=== PATIENT | male | born 1950 | race American Indian/Alaskan Native ===

== ENCOUNTER 2017-08-04 07:07 | Day surgery (SDC) | payer MEDICARE, OTHER ==
[~2017-08-04] VITALS: Ht 172.7 cm; Wt 90.7 kg
[~2017-08-04 07:07] MED LIST: CLINDAMYCIN HC300 MG PO; COUMADIN5 MG PO; HYDROCODON-ACE1 EA10 PO; IBUPROFEN800 MG PO; LIPITOR10 MG PO; LIPITOR20 MG PO; VICODIN 5-3001 EACH PO
[2017-08-04] MEDS ORDERED: PAIN RELIEF325 MG PO (07:22)
== END 2017-08-04 08:50 | disposition home or self-care (01) ==
LOC: OPS 07:07 → DS 07:07 → OPS 08:15 → DS 08:30 → OPS 08:50
PROC: 08RK3JZ Replacement of Left Lens with Synthetic Substitute, Percutaneous Approach (ICD-10-PCS; principal; 2017-08-04)
DX: H25.812 Combined forms of age-related cataract, left eye (principal); Z87.891 Personal history of nicotine dependence; Z98.890 Other specified postprocedural states; Z86.73 Personal history of transient ischemic attack (TIA), and cerebral infarction without residual deficits; Z96.651 Presence of right artificial knee joint; Z88.0 Allergy status to penicillin
CPT/HCPCS: 00140; J0360

== ENCOUNTER 2017-11-08 15:52 | Day surgery (SDC) | payer MEDICARE, OTHER ==
[~2017-11-08] VITALS: Ht 172.7 cm; Wt 99.8 kg
--- OUTSIDE RECORDS SUMMARY | ~2017-11-08 | XMS | Encounter Summary ---
Demographics + + + | Address | [address] | | | [place] [address] | + + + | Home Phone | | + + + | Preferred Language | Unknown | + + + | Marital Status | Single | + + + | Restorationist Affiliation | Unknown | + + + | Race | Unknown | + + + | Ethnic Group | Other Race | + + + Author + + + | Author | [facility] | + + + | Organization | [facility] | + + + | Address | Unknown | + + + | Phone | Unavailable | + + + Support +------+ +---------+ + | Name | Relationship | Address | Phone | +------+ +---------+ + ECON | Unknown | Unavailable | +------+ +---------+ + Care Team Providers + +------+-------+ | Care Technical Support Agent Name | Role | Phone | + +------+-------+ | Matt Arreguin MD | PCP | tel | + +------+-------+ Encounter Details +--------+ + + + + | Date | Type | Department | Care Team | Description | +--------+ + + + + | 09/24/ | Document-Sc | Health Information | Unknown . | | | 2017 | anned | Services [address] | | | | | | [facility] | | | | | | Road Mailcode: | | | | | | [address] | | | | | | [facility] | | | | | | [place], [place] | | | | | | [address] | | | | | | [phone] | | | +--------+ + + + + Social History + + + +--------+ + | Tobacco Use | Types | Packs/Day | Years | Date | | | | | Used | | + + + +--------+ + | Former Smoker | Cigarettes | 2 | 24 | Quit: 11/08/1979 | + + + +--------+ + + + +---------+ + | Alcohol Use | Drinks/We | oz/Week | Comments | | | ek | | | + + +---------+ + | No | | | | + + +---------+ + + + + | Sex Assigned at | Date Recorded | | | | + + + | Not on file | | + + + as of this encounter Plan of Treatment Not on fileas of this encounter Visit Diagnoses Not on filein this encounter"
[~2017-11-08 15:52] MED LIST changes: +PAIN RELIEF325 MG PO
--- NOTE | 2017-11-08 19:33 | NUR ---
11/08/171932 Laura Garibay 1926: PT ARRIVES TO PACU. PT IS AWAKE AND RESPONSIVE. HE FREQUENTLY COUGHS, DENIES PAIN. HE FOLLOWS DIRECTIONS WELL.
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
--- NOTE | 2017-11-08 22:17 | NUR ---
PT DISCHARGED WITH FRIEND CHRIS YOST @ 7029 VIA THIS RN, WHEELCHAIR TO FRONT. ASSISTED PT INTO FRONT SEAT OF AUTO. PRIOR TO DISCHARGE, PT DRANK WATER, POP, ATE JELLO. VOIDED X 2. LEFT LEG DRESSING WAS C/D/I, WRAPPED WITH ACEWRAP. INSTRUCTIONS GIVEN AND READ TO PT PRIOR TO DISCHARGE. HOMEPACK NORCO GIVEN TO PT WELL. PERSCRIPTION PER DR. CARTER GIVEN TO PT, HOWEVER IS NOTED THAT WROTE THE CLINDAMYCIN FOR "IV" VS "PO", WILL CALL IN AM AND LET HIM KNOW. PT AWARE. PLANS TO GET MEDICATIONS FILLED AT [facility]. PT AWARE THAT HE NEEDS TO MAKE AN APPOINTMENT IN 7-10 DAYS, DR. CARTER CARD GIVEN TO PT WELL.
--- NOTE | 2017-11-09 06:27 | NUR ---
NOTIFIED DR. CARTER OF THE CLINDAMYCIN PERSCRIPTION ORDER BEING WROTE "IV" VS PO. HE WILL TAKE CARE OF IT TODAY.
--- NOTE | 2017-11-09 06:38 | EKG ---
[facility] [address] [facility] [place], [place] [address] Signed Normal sinus rhythm Rightward axis Borderline ECG No previous ECGs available Confirmed by JOSETTE HICKEY MD ([id number]) on 11/09/2017 6:38:44 AM Electronically Signed By: JOSETTE HICKEY MD 11/09/17 0638 PATIENT NAME: ELIESER MOSES SR Electrocardiogram DATE OF : 46 PHYSICIAN: JOSETTE HICKEY MD REPORT #: [id number] REPORT IS CONFIDENTIAL AND NOT TO BE RELEASED WITHOUT AUTHORIZATION
--- NOTE | 2017-11-17 18:42 | OR ---
[facility] [address] [place], [place] [address] Signed DATE OF OPERATION: 11/08/2017 SURGEON: Britton Carter MD PREOPERATIVE DIAGNOSIS: Dog bite, left lower extremity. POSTOPERATIVE DIAGNOSIS: Dog bite, left lower extremity. PROCEDURE: Wound irrigation, sharp debridement, and primary closure, left lower extremity wounds. ESTIMATED BLOOD LOSS: None. INDICATIONS: Elieser is a 67-year-old gentleman who owns 2 dogs, one is in an older Rottweiler. The other is a younger dog, a mixture of a Portuguese Courtney with a [place]. Unfortunately, the Rottweiler went after the younger dog earlier today. When Elieser stepped in between them, the Rottweiler bit him in his left leg just below his left knee. It opened up the skin on the lateral side of the tibia probably 8 cm, maybe slightly more and tore up some of the muscle. It also tore some of the skin on the medial side of his calf as well. Elieser and his came in the emergency room for evaluation. He is up to date on his tetanus shot. He did receive Levaquin and clindamycin because he is allergic to penicillin. I have been asked by the ER physician Dr. Keyla Quinones to come and see Elieser urgently in the ER for evaluation and wound management. I met with Elieser and his in the emergency room. I explained to Elieser it is best that we taken down to the operating room, we will put him asleep and will thoroughly and aggressively clean his wounds with chlorhexidine scrub brushes and once that is completed, we would be able to prep and drape his leg, evaluate the wound, sharply debride any loose or devitalized tissue and then loosely reapproximate the wound. He is at high risk for infection, particularly pasteurella. He wanted to go home afterwards, even though he is getting late and his was in agreement with that. I did review the postop instructions with Elieser and his prior to going to the OR. They had expressed understanding and wished to proceed. PROCEDURE NOTE: Elieser was taken into our operating room and placed in the supine position under general endotracheal tube anesthesia. He was already given Levaquin and clindamycin Electronically Signed By: BRITTON CARTER MD 11/17/17 1842 PATIENT NAME: ELIESER MOSES SR OPERATIVE REPORT DATE OF : 46 PHYSICIAN: BRITTON CARTER MD REPORT #: [id number] REPORT IS CONFIDENTIAL AND NOT TO BE RELEASED WITHOUT AUTHORIZATION [address] [address] Signed preoperatively. He has been on Coumadin because of the history of DVT and a stroke. Consequently, we did not give him any subcutaneous heparin. Our preoperative labs were still pending. After this, we used our chlorhexidine scrub brushes and saline and we cope to aggressively scrub and irrigate out his 2 wounds. He had a couple of smaller puncture wounds on the medial side of his calf as well. After this, his entire foot and leg to above the knee was prepped and draped in the usual sterile fashion. We then used some warm antibiotic saline solution to irrigate the wounds and we inspected them carefully and there were a few loose hairs that we had to remove. There was a little bit of blood clot, we cleaned that out nicely. He had some disruption to the muscle lateral to the tibia and we used a number 2-0 PDS suture in a horseshoe fashion to bring that muscle together loosely. We then brought the skin flap over that and held the skin flap together loosely with interrupted 2-0 nylon vertical mattress sutures. We then turned our attention to the much smaller 2 cm wound on the medial side of his calf, again we loosely approximated the skin edges with 2 interrupted sutures of 2-0 nylon. We used the vertical mattress technique. The tiny puncture wounds were left open. Those tiny puncture wounds connect with the larger wound on the medial side of his calf. All that had been irrigated and cleaned out aggressively. After this, we wrapped his leg with 4-inch Kerlix gauze and a 4-inch Albaro wrap. Elieser was then awakened from his anesthesia, extubated in the OR, taken to recovery room in stable condition. Britton Carter MD ALB/MODL /[id number] cc: MD Enedelia Gabriel MD Electronically Signed By: BRITTON CARTER MD 11/17/17 1842 PATIENT NAME: ELIESER MOSES SR OPERATIVE REPORT DATE OF : 46 PHYSICIAN: BRITTON CARTER MD REPORT #: [id number] REPORT IS CONFIDENTIAL AND NOT TO BE RELEASED WITHOUT AUTHORIZATION [place] [address] Signed Britton Carter MD Electronically Signed By: BRITTON CARTER MD 11/17/17 1842 PATIENT NAME: ELIESER MOSES SR OPERATIVE REPORT DATE OF : 46 PHYSICIAN: BRITTON CARTER MD REPORT #: [id number] REPORT IS CONFIDENTIAL AND NOT TO BE RELEASED WITHOUT AUTHORIZATION
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
== END 2017-11-08 21:55 | disposition home or self-care (01) ==
LOC: ED 15:52 → MS 18:34 → DS 18:34
PROVIDERS: Colon & Rectal Surgery
PROC: 0JBP0ZZ Excision of Left Lower Leg Subcutaneous Tissue and Fascia, Open Approach (ICD-10-PCS; principal; 2017-11-08 19:00)
DX: S81.852A Open bite, left lower leg, initial encounter (principal); I10 Essential (primary) hypertension; E78.5 Hyperlipidemia, unspecified; Z86.73 Personal history of transient ischemic attack (TIA), and cerebral infarction without residual deficits; Z86.718 Personal history of other venous thrombosis and embolism; Z96.611 Presence of right artificial shoulder joint; Z96.612 Presence of left artificial shoulder joint; Z96.641 Presence of right artificial hip joint; Z87.891 Personal history of nicotine dependence; Z79.899 Other long term (current) drug therapy; W54.0XXA Bitten by dog, initial encounter; Y93.9 Activity, unspecified
CPT/HCPCS: 00400; 73590; 80053; 85025; 85610; 93005; 93010; 96365; 96366; 96368; 99285; J0330; J1956; J2405; J2704; J2765; J3010; J3490; J7120

== ENCOUNTER 2020-07-29 14:19 | Emergency (ER) | payer MEDICARE, OTHER ==
[~2020-07-29] VITALS: Ht 172.7 cm; Wt 93.0 kg
--- OUTSIDE RECORDS SUMMARY | ~2020-07-29 | XMS | Encounter Summary ---
Demographics + + + | Address | [address] | | | [place] [address] | + + + | Home Phone | | + + + | Preferred Language | Unknown | + + + | Marital Status | Single | + + + | Amish Affiliation | Unknown | + + + | Race | Unknown | + + + | Ethnic Group | Other Race | + + + Author + + + | Author | [facility] | + + + | Organization | [facility] | + + + | Address | Unknown | + + + | Phone | Unavailable | + + + Support + + +---------+ + | Name | Relationship | Address | Phone | + + +---------+ + | None None | ECON | Unknown | Unavailable | + + +---------+ + Care Team Providers + +------+ + | Care Drug Abuse Program Coordinator Name | Role | Phone | + +------+ + | Matt Arreguin MD | PCP | | + +------+ + Encounter Details +--------+---------+ + + + | Date | Type | Department | Care Team | Description | +--------+---------+ + + + | 04/27/ | Office | [facility] | Omer De Luna, | Hemangioma of | | 2011 | Visit | [facility] at | [address] | unspecified site | | | | [place] [address] [address] | [address] | (Primary Dx) | | | | [address] | [place], [place] | | | | | Eye [place] | [address] | | | | | [place], [place] | [phone] | | | | | [address] | | | +--------+---------+ + + + Social History + + + +--------+ + | Tobacco Use | Types | Packs/Day | Years | Date | | | | | Used | | + + + +--------+ + | Former Smoker | Cigarettes | 2 | 24 | Quit: 11/08/1979 | + + + +--------+ + + + +---------+ + | Alcohol Use | Drinks/Week | oz/Week | Comments | + + +---------+ + | No | | | | + + +---------+ + + + + | Sex Assigned at | Date Recorded | | | | + + + | Not on file | | + + + documented as of this encounter Patient Instructions Patient Instructions Isabel Beyer - 04/27/2012 11:05 AM PDT Mr. Dequan Reyes was seen for the followin. Hemangioma of unspecified site Verbal instructions for diagnosis and management were given. Return in about 6 months (ar ound 10/27/2012). documented in this encounter Progress Notes Omer De Luna MD - 04/27/2012 10:30 AM PDTFormatting of this note might be different fro m the original. History of Present Illness: Dequan Reyes is a 62 y.o. male who returns for follow up of ch oroidal hemangioma s/p photodynamic therapy OD 12/02/10, 09/09/10 & 06/19/10. Vision is poor but stable since last visit. Medications: no eye meds Review of Systems: Right Left Loss of Vision no no Eye Pain no no Mental Status: Oriented times three Examination: EXAMINATION: VAs RE: HM?/LP VAcc LE: 20/20-2 IOP: RE 11; LE 14 by [place] at 10:32 AM RE LE Pupils 1 mm, nonreactive 2 mm minimal reactive Motility RXT, full ROM full ROM CVF full full Dilating drops placed: tropicamide 1% and neosynephrine 2.5% at 10:35 AM and again at 10:50 AM External: OD normal, OS normal Slit lamp exam: RE LE Lids/Lacrimal/Tear: normal Conjunctiva: normal Cornea: epithelium intact, normal stromal thickness, endothelium normal AC: deep and clear Iris: normal Lens: 2-3+ NS Lids/Lacrimal/Tear: normal Conjunctiva: normal Cornea: epithelium intact, normal stromal thickness, endothelium normal AC: deep and clear Iris: normal Lens: 2-3+ NS Fundus Exam: RE LE Vitreous: normal Disc: CDR .2 Macula: relatively flat non-pigmented lesion; no subretinal fluid in the fovea Vessels: normal Periphery: some subretinal fluid temporally in a tight fold; otherwise fluid has reabsorbed Vitreous: normal Disc: CDR .2 Macula: normal Vessels: normal Periphery: normal Assessment and Plan: 1. 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 Sensory exotropia, right eye 3. Cataracts, both eyes RTC 6 months to continue to monitor, sooner prn I have reviewed and edited history, identification technician, resident and/or fellow portion of documenta tion, and performed all elements of the above examination documentation. Omer De Luna MD Professor and Lluvia Chair, Department of Ophthalmology Director, [facility] [phone] documented in this en counter Plan of Treatment Not on filedocumented as of this encounter Visit Diagnoses + + | Diagnosis | + + | Hemangioma of unspecified site - Primary | + + documented in this encounter"
--- OUTSIDE RECORDS SUMMARY | ~2020-07-29 | XMS | Encounter Summary ---
Demographics + + + | Address | [address] | | | [place] [address] | + + + | Home Phone | | + + + | Preferred Language | Unknown | + + + | Marital Status | Single | + + + | Nondenominational Affiliation | Unknown | + + + | Race | Unknown | + + + | Ethnic Group | Other Race | + + + Author + + + | Author | [facility] | + + + | Organization | [facility] | + + + | Address | Unknown | + + + | Phone | Unavailable | + + + Support + + +---------+ + | Name | Relationship | Address | Phone | + + +---------+ + | None None | ECON | Unknown | Unavailable | + + +---------+ + Care Team Providers + +------+ + | Care Coke Drawer Hand Name | Role | Phone | + +------+ + | Matt Arreguin MD | PCP | | + +------+ + Reason for Visit + + + | Reason | Comments | + + + | Follow-up visit | | + + + Encounter Details +--------+---------+ + + + | Date | Type | Department | Care Team | Description | +--------+---------+ + + + | 12/05/ | Office | [facility] | Nakia Gomez, | Benign neoplasm of | | 2012 | Visit | [facility] at | ,PhD [address] | choroid (Primary Dx) | | | | [facility] [address] | [address]donez | | | | | [address] | [place], [place] | | | | | Eye [facility] | [address] | | | | | floor [place], [place] | [phone] | | | | | [address] | [...] + + documented as of this encounter Progress Shayna Varsha Tracey - 12/05/2012 1:44 PM PSTThis note was opened in error. No show for luis GOMEZ MD,PhD documented in th is encounter Plan of Treatment Not on filedocumented as of this encounter Visit Diagnoses + + | Diagnosis | + + | Benign neoplasm of choroid - Primary | + + documented in this encounter"
--- OUTSIDE RECORDS SUMMARY | ~2020-07-29 | XMS | Encounter Summary ---
Demographics + + + | Address | [address] | | | [place] [address] | + + + | Home Phone | | + + + | Preferred Language | Unknown | + + + | Marital Status | Single | + + + | Anabaptism Affiliation | Unknown | + + + | Race | Unknown | + + + | Ethnic Group | Other Race | + + + Author + + + | Author | [facility] | + + + | Organization | [facility] | + + + | Address | Unknown | + + + | Phone | Unavailable | + + + Support + + +---------+ + | Name | Relationship | Address | Phone | + + +---------+ + | None None | ECON | Unknown | Unavailable | + + +---------+ + Care Team Providers + +------+ + | Care Block And Case Maker Name | Role | Phone | + +------+ + | Matt Arreguin MD | PCP | | + +------+ + Reason for Visit + +--------+ + | Reason | Onset | Comments | | | Date | | + +--------+ + | New patient | | | | consultation | | | + +--------+ + | Follow-up visit | 05/21/ | | | | 2009 | | + +--------+ + Office Visit - E/M Services (Routine) +--------+--------+ + + + + | Status | Reason | Specialty | Diagnoses / | Referred By | Referred To | | | | | Procedures | Contact | Contact | +--------+--------+ + + + + | Closed | | Ophthalmology | Diagnoses | Sitz, | Calixto, | | | | | Contact: | Matt | Omer Lopes MD | | | | | Em | MD Satya | [address] | | | | | [place] | [place] | [place] | | | | | [phone] | [address] | [address] | | | | | Fax: | MEDICINE | [place], [place] | | | | | [phone] | [address] | [address] | | | | | | [place] | Phone: | | | | | | [address] | [phone] | | | | | | [place], | Fax: | | | | | | [place] [address] | [phone] | | | | | | Phone: | | | | | | | [phone] | | | | | | | Fax: | | | | | | | [phone] | | +--------+--------+ + + + + Encounter Details +--------+---------+ + + + | Date | Type | Department | Care Team | Description | +--------+---------+ + + + | 05/21/ | Office | [facility] | Omer De Luna, | Benign neoplasm of | | 2009 | Visit | [facility] at | MD [address] | choroid (Primary Dx) | | | | [facility] [address] | [place] [address] | | | | | [facility] | [place], [place] | | | | | and Healing, | [address] | | | | | | [phone] | | | | | Floor [place], [place] | | | | | | [address] | | | | | | [phone] | | | +--------+---------+ + + + [...] + documented as of this encounter Progress Notes Omer De Luna MD - 05/21/2010 10:19 AM PDTFormatting of this note might be different fro m the original. History of Present Illness: Dequan Reyes is a 60 y.o. male referred by Dr. Knox for eval uation of a dome shaped choroidal mass OD. Patient evaluated by Dr. Knox and Dr. Torres inc luding echography on 04/15/10. Mr. Reyes has previously had laser treatment to the choroida l lesion with a clinical diagnosis of hemangioma. Patient reports his vision in his OD has b een poor for years, OS is good. PCP - Dr. Arreguin recently completed medical workup with labs, EKG (received reports) CT [address], abdomen and pelvis (not received). Medications: No eye medications. Systemic medications reviewed in EPIC. Review of Systems: RE LE RE LE Loss of vision Y N Night Blindness N N Loss of peripheral vision N N Seeing a curtain or veil N N Eye Pain N N Headache N N Light flashes Y N Double vision N N Floaters N N Migraines N N Visual blackouts N N Distorted vision Y N Social History: Tobacco Use: No Drives: Yes Occupation: Disabled Mental Status: Oriented times three Examination: VAsc RE: VAcc RE: CF 6" VAph sc RE: VAph cc RE: NI VAsc LE: VAcc LE: 20/20-2 VAph sc LE: VAph cc LE: IOP: RE 20; LE 17 by Tonopen at 10:24 AM RE LE Pupils 2.5 mm equal round and reactive to light; no APD 2.5 mm equal round and reactive to light; no APD Motility ortho, full ROM ortho, full ROM CVF limited all sheridan full Dilating drops placed: tropicamide 1% and neosynephrine 2.5% OU at 10:25 AM Varsha Salinas Cot, performed, reviewed or revised the above history, medications, allergie s, as well as performed elements noted in the Base Ophthalmology Exam, such as visual acuity , pupils, EOMs, CVF and IOP. External OD normal, OS normal Slit lamp exam: RE LE Lids/Lacrimal/Tear: normal Conjunctiva: normal Cornea: epithelium intact, normal stromal thickness, endothelium normal AC: deep and clear Iris: normal Lens: 2+ NS Lids/Lacrimal/Tear: normal Conjunctiva: normal Cornea: epithelium intact, normal stromal thickness, endothelium normal AC: deep and clear Iris: normal Lens: 2+ NS Fundus Exam: RE LE Vitreous: normal Disc: CDR .4 Macula: reddish, elevated lesion Vessels: normal Periphery: bullous retinal detachment inferiorly; there are clumps of pigmented cells on th e surface of the retina; no retinal breaks can be identified Vitreous: normal Disc: CDR .4 Macula: normal Vessels: normal Periphery: normal Diagnostic Studies: Color fundus photography: The color photographs are of diminished quality secondary to the lens changes and but the reddish color of the mass is clear in the photographs. Echography: There is a dome shaped mass in the choroid with a prominent amount of subretina l fluid present inferiorly. A scan echography demonstrates high internal reflectivity. Assessment and Plan: Choroidal mass: The lesion in Mr. Reyes right eye has the clinical features of a choroidal hemangioma, reddish coloration, high internal reflectivity. The amount of subretinal fluid is in excess of what one would anticipate with a focal choroidal hemangioma, and the extent of the fluid makes me wonder if there is not a small retinal hole that is permitting a great er amount of fluid than would otherwise be present. The pigmented cells on the surface of th e retina also suggest the possibility of a retinal break, although sometimes one can see skylar ls from prior laser therapy. I have recommended to Mr. Reyes that we do photodynamic therap y to the choroidal lesion as choroidal hemangiomas are generally responsive to that form of treatment. I would take a good response as an indication that the lesion is in fact a heman gioma. If the lesion responds but the subretinal fluid persists, I think that it would be a ppropriate to do a vitrectomy with internal drainage of the fluid. However, I think that ma y be postponed until after the photodynamic therapy. RTC when scheduled for PDT. Omer De Luna MD Professor and Chair, Department of Ophthalmology [facility] [phone] documented in this en counter Miscellaneous Notes Scan - Other, Faculty - 05/21/2010 12:20 PM PDT can - Other, Faculty - 05/21/2010 12:20 PM PDT can - Other, Faculty - 04/21/2010 12:00 AM PDTAssociated Order(s): LAB REPORTS documented in this encou nter Plan of Treatment + + +--------+ + + | Name | Type | Priori | Associated Diagnoses | Order Schedule | | | | ty | | | + + +--------+ + + | COLOR PHOTOGRAPHY | Procedures | Routin | Benign neoplasm of | Expected: | | | | e | choroid | 05/21/2010, Expires: | | | | | | 07/20/2010 | + + +--------+ + + documented as of this encounter Procedures + +--------+ + + + | Procedure Name | Priori | Date/Time | Associated Diagnosis | Comments | | | ty | | | | + +--------+ + + + | SC FUNDAL | Routin | 05/21/2010 | Benign neoplasm of | | | PHOTOGRAPHY | e | 11:10 AM | choroid | | | | | PDT | | | + +--------+ + + + | LAB REPORTS | | 04/21/2010 | | Results for this | | | | 12:00 AM | | procedure are in the | | | | PDT | | results section. | + +--------+ + + + documented in this encounter Results LAB REPORTS (04/21/2010 12:00 AM PDT) + + + | Narrative | Performed At | + + + | | | + + + + + | Procedure Note | + + | Nicole, Faculty - 04/21/2010 12:00 AM PDT | | | + + documented in this encounter Visit Diagnoses + + | Diagnosis | + + | Benign neoplasm of choroid - Primary | + + documented in this encounter
--- OUTSIDE RECORDS SUMMARY | ~2020-07-29 | XMS | Encounter Summary ---
Demographics + + + | Address | [address] | | | [place] [address] | + + + | Home Phone | | + + + | Preferred Language | Unknown | + + + | Marital Status | Single | + + + | Mandaeism Affiliation | Unknown | + + + | Race | Unknown | + + + | Ethnic Group | Other Race | + + + Author + + + | Author | [facility] | + + + | Organization | [facility] | + + + | Address | Unknown | + + + | Phone | Unavailable | + + + Support + + +---------+ + | Name | Relationship | Address | Phone | + + +---------+ + | None None | ECON | Unknown | Unavailable | + + +---------+ + Care Team Providers + +------+ + | Care Textiles Sales Representative Name | Role | Phone | + +------+ + | Matt Arreguin MD | PCP | | + +------+ + Reason for Visit + +--------+ + | Reason | Onset | Comments | | | Date | | + +--------+ + | Follow-up visit | 06/03/ | | | | 2010 | | + +--------+ + Encounter Details +--------+---------+ + + + | Date | Type | Department | Care Team | Description | +--------+---------+ + + + | 06/03/ | Office | [facility] | Omer De Luna, | Benign neoplasm of | | 2010 | Visit | [facility] at | [address] | choroid (Primary Dx) | | | | [facility] [address] | [place] [address] | | | | | [facility] | [place], [place] | | | | | and [place], | [address] | | | | | [facility] | [phone] | | | | | Floor [place], [place] | | | | | | [address] | | | | | | [phone] | | | +--------+---------+ + + + [...] of this encounter Patient Instructions Patient Instructions Omer De Luna MD - 06/03/2011 12:10 PM PDTFormatting of this note m ight be different from the original. Mr. 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 Return in about 4 months (ar ound 10/04/2011). documented in this encounter Progress Notes Omer De Luna MD - 06/03/2011 11:42 AM PDTFormatting of this note might be different fro m the original. History of Present Illness: Dequan Reyes is a 61 y.o. male who returns for follow up of ch oroidal hemangioma. S/P photodynamic therapy OD 12/02/10, 09/09/10 & 06/19/10. Vision is sta ble since last visit. Medications: no eye meds. Systemic meds reviewed in EPIC. Took one vicodin this morning for headache. Review of Systems: Right Left Loss of Vision Yes, stable no Eye Pain no no Mental Status: Oriented times three Examination: VAsc RE: VAph RE: VAcc RE: HM VAsc LE: VAph LE: VAcc LE: 20/20-2 IOP: RE 11; LE 18 by Tonopen at 11:46 AM RE LE Pupils 1.5mm, nonreactive 1.5mm, nonreactive Motility ortho, full ROM ortho, full ROM CVF full full Dilating drops placed: tropicamide 1% and neosynephrine 2.5% at 11:46 AM. External: OD normal, OS normal Slit lamp exam: RE LE Lids/Lacrimal/Tear: normal Conjunctiva: normal Cornea: epithelium intact, normal stromal thickness, endothelium normal AC: deep and clear Iris: normal Lens: 2+ NS Lids/Lacrimal/Tear: normal Conjunctiva: normal Cornea: epithelium intact, normal stromal thickness, endothelium normal AC: deep and clear Iris: normal Lens: 2+ NS Fundus Exam: RE LE Vitreous: normal Disc: CDR .2 Macula:reddish-yellow, elevated lesion with no drusen, no lipofuscin but now has surface ex udates or fibrosis Vessels: sclerotic Periphery: inferior subretinal fluid; diminished compared to prior examinations Vitreous: normal Disc: CDR .2 Macula: normal Vessels: normal Periphery: normal Diagnostic Studies: Color Fundus Photography: There is a lesion in the central macula with overlying fibrosis. The superotemporal and inferotemporal arteries appear sclerotic. There is no significant int erval change when compared to prior photographs. Echography: The B-scan shows a dome-shaped mass with significant subretinal fluid. There is perhaps a slight increase in thickness to about 2.5 mm. Measurements are difficult because of the ill-defined sclera. However, in a side by side comparison to last exam shows the lesi on to be "baird" today. The retina remains bullously detached across the lesion. Assessment and Plan: 1. 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 I do not feel that additional treatment woul d be beneficial at this time. 2. Subretinal fluid: If the subretinal fluid does not show continued resolution, will consi chele draining the fluid with vitrectomy. However, Mr. Reyes is reluctant to consider further treatment at this time. I have reviewed and edited history, field contact technician, resident and/or fellow portion of documenta tion, and performed all elements of the above examination documentation. Omer De Luna MD Professor and Lluvia Chair, Department of Ophthalmology Director, [facility] [phone] documented in this en counter Plan of Treatment + + +--------+ + + | Name | Type | Priori | Associated Diagnoses | Order Schedule | | | | ty | | | + + +--------+ + + | COLOR PHOTOGRAPHY | Procedures | Routin | Benign neoplasm of | Expected: | | | | e | choroid | 06/03/2011, Expires: | | | | | | 08/02/2011 | + + +--------+ + + | ULTRASOUND, B SCAN | Procedures | Routin | Benign neoplasm of | Expected: | | | | e | choroid | 06/03/2011, Expires: | | | | | | 08/02/2011 | + + +--------+ + + documented as of this encounter Procedures + +--------+ + + + | Procedure Name | Priori | Date/Time | Associated Diagnosis | Comments | | | ty | | | | + +--------+ + + + | DC FUNDAL | Routin | 06/03/2011 | Benign neoplasm of | | | PHOTOGRAPHY | e | 12:09 PM | choroid | | | | | PDT | | | + +--------+ + + + documented in this encounter Visit Diagnoses + + | Diagnosis | + + | Benign neoplasm of choroid - Primary | + + documented in this encounter
--- OUTSIDE RECORDS SUMMARY | ~2020-07-29 | XMS | Encounter Summary ---
Demographics + + + | Address | [address] | | | [place] [address] | + + + | Home Phone | | + + + | Preferred Language | Unknown | + + + | Marital Status | Single | + + + | Mandaen Affiliation | Unknown | + + + | Race | Unknown | + + + | Ethnic Group | Other Race | + + + Author + + + | Author | [facility] | + + + | Organization | [facility] | + + + | Address | Unknown | + + + | Phone | Unavailable | + + + Support + + +---------+ + | Name | Relationship | Address | Phone | + + +---------+ + | None None | ECON | Unknown | Unavailable | + + +---------+ + Care Team Providers + +------+ + | Care Electronic Installer Name | Role | Phone | + +------+ + | Matt Arreguin MD | PCP | | + +------+ + Reason for Visit + +--------+ + | Reason | Onset | Comments | | | Date | | + +--------+ + | Ultrasound procedure | 12/03/ | | | | 2010 | | + +--------+ + Encounter Details +--------+---------+ + + + | Date | Type | Department | Care Team | Description | +--------+---------+ + + + | 12/02/ | Office | [facility] | Nicolas Rose | Benign neoplasm of | | 2010 | Visit | [facility] at | Avi Harris MD [address] | choroid (Primary | | | | [facility] [address] | Dx); Retinal | | | | [address] | [place], [place] | detachment with | | | | [facility], [facility] | [address] | retinal defect, | | | | floor [facility] [place] | [phone] | unspecified | | | | [address] | | [...] documented as of this encounter Progress Notes Adan Spencer - 12/03/2010 2:50 PM Mauricio Reyes was seen in the [facility] otography/Ultrasound Department today, 12/02/2010, for ultrasound, OD. This is a repeat exam showing no appreciable change in echographic appearance. Report finalized. NICOLAS ROSE MD Chin Dickson RN - 2:03 PM PST Photodynamic Therapy Procedure Report [id number] Indication: Choroidal hemangioma 224.6 right eye identified as the involved eye. Visual Acuity : 20/CF 2-3' Right eye IOP 16mmHg Race Engine Builder: ISAIAH Younger Allergies Allergen Reactions Penicillins Any Liver Disease? no There is no height or weight on file to calculate BSA. Height:67" Weight:227 Pulse : 64 BP: 140/80 Anesthesia: Topical proparacaine Lens: Mainster PDT Infusion: Visudyne: 6.3 ml = 126 units given, 24 units wasted Lot # [id number] Exp. 09/20 D 5W: 23.7 mlIV site: 24G IV started in left antecubital Visudyne infused over 10 minutesInfus ion Complications: none Infusionist: Chin Birch RN 15 minutes after the start of infusion, diode laser light at 689nm delivered 50J/cm2 at an intensity of 600mW/cs3saar 83 seconds using a 7.5 micron spot. Laser Complications: none Attending: BOZENA MCDONALD MD Discharge Instructions: Call or return for worsening vision. For the next 5 days remain ind oors if possible, Strictly avoid exposure to direct sun and halogen light. Wear hat, gloves, long sleeves, sunglasses outdoors. Follow-up in 8 weeks . Alejandro mented in this encounter Plan of Treatment + +---------+--------+ + + | Name | Type | Priori | Associated Diagnoses | Order Schedule | | | | ty | | | + +---------+--------+ + + | [facility] B-SCAN | Imaging | Routin | Retinal detachment | Ordered: 12/03/2010 | | | | e | with retinal | | | | | | defect, unspecified | | | | | | Benign neoplasm of | | | | | | choroid | | + +---------+--------+ + + documented as of this encounter Visit Diagnoses + + | Diagnosis | + + | Benign neoplasm of choroid - Primary | + + | Retinal detachment with retinal defect, unspecified | + + documented in this encounter
--- OUTSIDE RECORDS SUMMARY | ~2020-07-29 | XMS | Encounter Summary ---
Demographics + + + | Address | [address] | | | [place] [address] | + + + | Home Phone | | + + + | Preferred Language | Unknown | + + + | Marital Status | | + + + | Bahai Affiliation | Unknown | + + + | Race | White | + + + | Ethnic Group | Unknown | + + + Author + + + | Author | [facility] | | | and [place] | + + + | Organization | [facility] | | | and [place] | + + + | Address | Unknown | + + + | Phone | Unavailable | + + + Care Team Providers + +------+ + | Care Painter Drum Name | Role | Phone | + +------+ + PCP | Unavailable | + +------+ + Encounter Details +--------+ + + + + | Date | Type | Department | Care Team | Description | +--------+ + + + + | 01/04/ | Hospital | [facility] | Oziel Pichardo | | | 2007 | Encounter | MED CTR MP INTRA OP | MD [address] [facility] | | | | | [address] | [place] | | | | | [place] | [address] | | | | | [address] | | | | | | [phone] | | | +--------+ + + + + Social History + +-------+ +--------+------+ | Tobacco Use | Types | Packs/Day | Years | Date | | | | | Used | | + +-------+ +--------+------+ | Never Assessed | | | | | + +-------+ +--------+------+ + + + | Sex Assigned at | Date Recorded | | | | + + + | Not on file | | + + + documented as of this encounter Plan of Treatment +--------+---------+ + + + | Date | Type | Specialty | Care Team | Description | +--------+---------+ + + + | 08/05/ | Office | Orthopedic Surgery | Omer Harrington, | | | 2019 | Visit | | [address] | | | | | | [place] [address] | | | | | | [phone] | | | | | | | | +--------+---------+ + + + documented as of this encounter Visit Diagnoses Not on filedocumented in this encounter"
--- OUTSIDE RECORDS SUMMARY | ~2020-07-29 | XMS | Encounter Summary ---
Demographics + + + | Address | [address] | | | [place] [address] | + + + | Home Phone | | + + + | Preferred Language | Unknown | + + + | Marital Status | Single | + + + | Taoism Affiliation | Unknown | + + + | Race | Unknown | + + + | Ethnic Group | Other Race | + + + Author + + + | Author | [facility] | + + + | Organization | [facility] | + + + | Address | Unknown | + + + | Phone | Unavailable | + + + Support + + +---------+ + | Name | Relationship | Address | Phone | + + +---------+ + | None None | ECON | Unknown | Unavailable | + + +---------+ + Care Team Providers + +------+ + | Care Hog Pusher Name | Role | Phone | + +------+ + | Unknown | PCP | Unavailable | + +------+ + Reason for Visit + +--------+ + | Reason | Onset | Comments | | | Date | | + +--------+ + | Ultrasound procedure | 04/15/ | | | | 2009 | | + +--------+ + Encounter Details +--------+---------+ + + + | Date | Type | Department | Care Team | Description | +--------+---------+ + + + | 04/15/ | Office | [facility] | Nicolas Rose | Neoplasm of | | 2009 | Visit | [facility] at | Avi Harris MD [address] | uncertain behavior | | | | [place] [address] [address] | [address] | of other specified | | | | [address] | [place], [place] | sites (Primary Dx); | | | | [facility], [address]th | [address] | Retinal detachment | | | | floor [place], [place] | [phone] | with retinal defect, | | | | [address] | | unspecified; Benign | | | | | | neoplasm of choroid | +--------+---------+ + + + Social History [...] this encounter Progress Notes Adan Spencer - 04/15/2010 6:02 PM Jeanine Reyes was seen in the [facility] otography/Ultrasound Department today, 04/15/2010, for ultrasound, OD. The B-scan shows the choroidal lesion along the 9:00 meridian in the macula. The retina is totally detached over the lesion and beyond. Tumor thickness is about 3.0 mm and shows moderate but irregular internal reflectivity ambreen acteristics. Standardized, diagnostic A-scan confirms the moderate internal reflectivity characteristics with irregular structure. There is a small finding outside the sclera beneath the lesion that is not unlike extrascle ral tumor extension. See [facility] Ultrasound Flowsheet for chronological tumor information. Report finalized. NICOLAS ROSE MD documented in this encounter Miscellaneous Notes Scan - Moraima Rivera - 04/15/2010 4:32 PM PDT documented in this encou nter Plan of Treatment + +---------+--------+ + + | Name | Type | Priori | Associated Diagnoses | Order Schedule | | | | ty | | | + +---------+--------+ + + | [facility] B-SCAN | Imaging | Routin | Retinal detachment | Ordered: 04/15/2010 | | | | e | with retinal | | | | | | defect, unspecified | | | | | | Benign neoplasm of | | | | | | choroid Neoplasm of | | | | | | uncertain behavior | | | | | | of other specified | | | | | | sites | | + +---------+--------+ + + documented as of this encounter Visit Diagnoses + + | Diagnosis | + + | Neoplasm of uncertain behavior of other specified sites - Primary | + + | Retinal detachment with retinal defect, unspecified | + + | Benign neoplasm of choroid | + + documented in this encounter"
--- OUTSIDE RECORDS SUMMARY | ~2020-07-29 | XMS | Encounter Summary ---
Demographics + + + | Address | [address] | | | [place] [address] | + + + | Home Phone | | + + + | Preferred Language | Unknown | + + + | Marital Status | | + + + | Jainism Affiliation | Unknown | + + + | Race | White | + + + | Ethnic Group | Unknown | + + + Author + + + | Author | [facility] | | | and [place] | + + + | Organization | [facility] | | | and [place] | + + + | Address | Unknown | + + + | Phone | Unavailable | + + + Care Team Providers + +------+ + | Care Milk Hauler Name | Role | Phone | + +------+ + PCP | Unavailable | + +------+ + Encounter Details +--------+ + + + + | Date | Type | Department | Care Team | Description | +--------+ + + + + | 07/12/ | Hospital | [facility] | | | | 2001 | Encounter | MED CTR GENERIC IP | | | | | | CONV DEPT [address] | | | | | | [place], | | | | | | [place] [address] | | | | | | [phone] | | | +--------+ + + + [...] | | 2019 | Visit | | [address] | | | | | | [place] [address] | | | | | | [phone] | | | | | | | | +--------+---------+ + + + documented as of this encounter Visit Diagnoses Not on filedocumented in this encounter"
--- OUTSIDE RECORDS SUMMARY | ~2020-07-29 | XMS | Encounter Summary ---
Demographics + + + | Address | [address] | | | [place] [address] | + + + | Home Phone | | + + + | Preferred Language | Unknown | + + + | Marital Status | | + + + | Jehovah'S Witness Affiliation | Unknown | + + + | Race | White | + + + | Ethnic Group | Unknown | + + + Author + + + | Author | [facility] | | | and [place] | + + + | Organization | [facility] | | | and [place] | + + + | Address | Unknown | + + + | Phone | Unavailable | + + + Care Team Providers + +------+ + | Care Underground Production Foreperson Name | Role | Phone | + +------+ + PCP | Unavailable | + +------+ + Encounter Details +--------+ + + + + | Date | Type | Department | Care Team | Description | +--------+ + + + + | 05/09/ | Imaging | [facility] | Provider, | | | 2020 | Exam | [facility] | MD [address] | | | | | IMAGING [address] | [address] | | | | | [address] | [place] [address] | | | | | [place] [address] | | | | | | [phone] | | | +--------+ + + + [...] | | 2019 | Visit | | [address] | | | | | | [place] [address] | | | | | | [phone] | | | | | | | | +--------+---------+ + + + documented as of this encounter Procedures + +--------+ + + + | Procedure Name | Priori | Date/Time | Associated Diagnosis | Comments | | | ty | | | | + +--------+ + + + | MRI SHOULDER RIGHT | Routin | 11/13/2019 | | Results for this | | WO CONTRAST | e | 12:00 AM | | procedure are in the | | | | PST | | results section. | + +--------+ + + + documented in this encounter Results MRI Shoulder Right wo Contrast (11/13/2019 12:00 AM PST) + + | Specimen | + + | | + + + + + | Narrative | Performed At | + + + | External films for comparison only | [facility] | | | | | No results will be in the chart. | | + + + + +---------+ + + | Performing | Address | City/State/Zipcode | Phone Number | | Organization | | | | + +---------+ + + | [facility] | | | | + +---------+ + + documented in this encounter Visit Diagnoses Not on filedocumented in this encounter"
--- OUTSIDE RECORDS SUMMARY | ~2020-07-29 | XMS | Encounter Summary ---
Demographics + + + | Address | [address] | | | [place] [address] | + + + | Home Phone | | + + + | Preferred Language | Unknown | + + + | Marital Status | Single | + + + | Scientology Affiliation | Unknown | + + + | Race | Unknown | + + + | Ethnic Group | Other Race | + + + Author + + + | Author | [facility] | + + + | Organization | [facility] | + + + | Address | Unknown | + + + | Phone | Unavailable | + + + Support + + +---------+ + | Name | Relationship | Address | Phone | + + +---------+ + | None None | ECON | Unknown | Unavailable | + + +---------+ + Care Team Providers + +------+ + | Care Software Tester Name | Role | Phone | + +------+ + | Matt Arreguin MD | PCP | | + +------+ + Reason for Visit + +--------+ + | Reason | Onset | Comments | | | Date | | + +--------+ + | Eye examination | 12/03/ | | | | 2010 | | + +--------+ + Encounter Details +--------+---------+ + + + | Date | Type | Department | Care Team | Description | +--------+---------+ + + + | 12/02/ | Office | [facility] | | Benign neoplasm of | | 2010 | Visit | [place] | | choroid (Primary | | | | Photography at | | Dx); Retinal | | | | [place] [address] [address] | | detachment with | | | | [address] | | retinal defect, | | | | [facility] [place], [address] | | unspecified | | | | floor [place], [place] | | | | | | [address] | | | +--------+---------+ + + + [...] + + documented as of this encounter Adan Gould - 12/03/2010 2:49 PM Mauricio Eric was seen in the [facility] [place] [facility] otography/Ultrasound Department today, 12/02/2010, for ultrasound, OD. This is a repeat exam showing no appreciable change in echographic appearance. dobenjamín in this encounte r Plan of Treatment Not on filedocumented as of this encounter Visit Diagnoses + + | Diagnosis | + + | Benign neoplasm of choroid - Primary | + + | Retinal detachment with retinal defect, unspecified | + + documented in this encounter"
--- OUTSIDE RECORDS SUMMARY | ~2020-07-29 | XMS | Encounter Summary ---
Demographics + + + | Address | [address] | | | [place] [address] | + + + | Home Phone | | + + + | Preferred Language | Unknown | + + + | Marital Status | Single | + + + | Denominational Affiliation | Unknown | + + + | Race | Unknown | + + + | Ethnic Group | Other Race | + + + Author + + + | Author | [facility] | + + + | Organization | [facility] | + + + | Address | Unknown | + + + | Phone | Unavailable | + + + Support + + +---------+ + | Name | Relationship | Address | Phone | + + +---------+ + | None None | ECON | Unknown | Unavailable | + + +---------+ + Care Team Providers + +------+ + | Care Employee Operations Examiner Name | Role | Phone | + +------+ + | Matt Arreguin MD | PCP | | + +------+ + Reason for Visit + + + | Reason | Comments | + + + | Medical Records | photos received from Dr. Barry | | Review | | + + + Encounter Details +--------+ + + + + | Date | Type | Department | Care Team | Description | +--------+ + + + + | 06/08/ | Documentati | [facility] | Patricia Knox, | Medical Records | | 2009 | on | [facility] | [address] | Review (photos | | | | [address] | [address] | received from | | | | [address] | [place], [place] | Jhonny) | | | | [facility] [place], [facility] | [address] | | | | | [place], [place] | [phone] | | | | | [address] | | | +--------+ + + + [...] + + documented as of this encounter Miscellaneous Notes Telephone Encounter - Patricia Knox MD - 06/08/2010 3:03 PM PDTFA received from Dr. 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 documented in this encounter Plan of Treatment Not on filedocumented as of this encounter Visit Diagnoses Not on filedocumented in this encounter"
--- OUTSIDE RECORDS SUMMARY | ~2020-07-29 | XMS | Encounter Summary ---
Demographics + + + | Address | [address] | | | [place] [address] | + + + | Home Phone | | + + + | Preferred Language | Unknown | + + + | Marital Status | Single | + + + | Druze Affiliation | Unknown | + + + | Race | Unknown | + + + | Ethnic Group | Other Race | + + + Author + + + | Author | [facility] | + + + | Organization | [facility] | + + + | Address | Unknown | + + + | Phone | Unavailable | + + + Support + + +---------+ + | Name | Relationship | Address | Phone | + + +---------+ + | None None | ECON | Unknown | Unavailable | + + +---------+ + Care Team Providers + +------+ + | Care Body Shop Manager Name | Role | Phone | + +------+ + | Unknown | PCP | Unavailable | + +------+ + Reason for Visit + +--------+ + | Reason | Onset | Comments | | | Date | | + +--------+ + | Eye examination | 04/15/ | | | | 2009 | | + +--------+ + Encounter Details +--------+---------+ + + + | Date | Type | Department | Care Team | Description | +--------+---------+ + + + | 04/15/ | Office | [facility] | | Neoplasm of | | 2009 | Visit | [place] | | uncertain behavior | | | | Photography at | | of other specified | | | | [place] [address] [address] | | sites (Primary Dx); | | | | [address] | | Retinal detachment | | | | [facility] [place], [facility] | | with retinal defect, | | | | floor [place], [place] | | unspecified; Benign | | | | [address] | | neoplasm of choroid | +--------+---------+ [...] Notes Adan Spencer - 04/15/2010 6:02 PM PDTDequan Reyes was seen in the [facility] [place] [facility] otography/Ultrasound Department today, 04/15/2010, for ultrasound, [...] not unlike extrascle ral tumor extension. See I Ultrasound Flowsheet for chronological tumor information. documented in this encounter Plan of Treatment [...]
--- OUTSIDE RECORDS SUMMARY | ~2020-07-29 | XMS | Encounter Summary ---
Demographics + + + | Address | [address] | | | [place] [address] | + + + | Home Phone | | + + + | Preferred Language | Unknown | + + + | Marital Status | | + + + | Yarsanism Affiliation | Unknown | + + + | Race | White | + + + | Ethnic Group | Unknown | + + + Author + + + | Author | [facility] | | | and [place] | + + + | Organization | [facility] | | | and [place] | + + + | Address | Unknown | + + + | Phone | Unavailable | + + + Care Team Providers + +------+ + | Care Tree Inspector Name | Role | Phone | + [...] | | | | [address] | [place] [address] | | | | | [place] [address] | | | | | | [phone] | | | +--------+ + + + [...] [address] | | | | | | [place] [address] | | | | | | [phone] | | | | | | | | +--------+---------+ + + + documented as of this encounter Procedures + +--------+ + + + | Procedure Name | Priori | Date/Time | Associated Diagnosis | Comments | | | ty | | | | + +--------+ + + + | XR SHOULDER RIGHT 2 | Routin | 12/11/2019 | | Results for this | | + VW | e | 12:00 AM | | procedure are in the | | | | PST | | results section. | + +--------+ + + + documented in this encounter Results XR Shoulder Right 2 + Vw (12/11/2019 12:00 AM PST) + + | Specimen [...]
--- OUTSIDE RECORDS SUMMARY | ~2020-07-29 | XMS | Encounter Summary ---
Demographics + + + | Address | [address] | | | [place] [address] | + + + | Home Phone | | + + + | Preferred Language | Unknown | + + + | Marital Status | Single | + + + | Faith Affiliation | Unknown | + + + | Race | Unknown | + + + | Ethnic Group | Other Race | + + + Author + + + | Author | [facility] | + + + | Organization | [facility] | + + + | Address | Unknown | + + + | Phone | Unavailable | + + + Support + + +---------+ + | Name | Relationship | Address | Phone | + + +---------+ + | None None | ECON | Unknown | Unavailable | + + +---------+ + Care Team Providers + +------+ + | Care Car Supplier Name | Role | Phone | + +------+ + | Matt Arreguin MD | PCP | | + +------+ + Reason for Visit + +--------+ + | Reason | Onset | Comments | | | Date | | + +--------+ + | Ultrasound procedure | 03/04/ | | | | 2010 | | + +--------+ + Encounter Details +--------+ + + + + | Date | Type | Department | Care Team | Description | +--------+ + + + + | 03/04/ | Results/Int | [facility] | Nicolas Rose | Benign neoplasm of | | 2010 | erpretation | [facility] | E Jr., MD [address] | choroid | | | | [address] [place] [address] | [address] | | | | | [address] | [place], [place] | | | | | Eye [facility], [facility] | [address] | | | | | floor [place], [place] | [phone] | | | | | [address] | [...] this encounter Progress Notes Adan Spencer - 03/04/2011 5:07 PM Jeanine Reyes was seen in the [facility] otography/Ultrasound Department today, 03/04/2011, for ultrasound and fundus photography, OD. The B-scan shows the choroidal lesion along the 9:00 meridian in the macula. The retina appears detached across the lesion. The underlying sclera appears intact but diffuse. See [facility] Ultrasound Flowsheet for chronological tumor information. I have reviewed the images and the initial report and I have made any necessary changes to the report as needed based on my assessment. NICOLAS ROSE MD documented in this encounter Plan of Treatment + +---------+--------+ + + | Name | Type | Priori | Associated Diagnoses | Order Schedule | | | | ty | | | + +---------+--------+ + + | [facility] | Imaging | Routin | Benign neoplasm of | Ordered: 03/04/2011 | | | | e | choroid | | + +---------+--------+ + + documented as of this encounter Visit Diagnoses + + | Diagnosis | + + | Benign neoplasm of choroid | + + documented in this encounter"
--- OUTSIDE RECORDS SUMMARY | ~2020-07-29 | XMS | Encounter Summary ---
Demographics + + + | Address | [address] | | | [place] [address] | + + + | Home Phone | | + + + | Preferred Language | Unknown | + + + | Marital Status | Single | + + + | Yarsanism Affiliation | Unknown | + + + | Race | Unknown | + + + | Ethnic Group | Other Race | + + + Author + + + | Author | [facility] | + + + | Organization | [facility] | + + + | Address | Unknown | + + + | Phone | Unavailable | + + + Support + + +---------+ + | Name | Relationship | Address | Phone | + + +---------+ + | None None | ECON | Unknown | Unavailable | + + +---------+ + Care Team Providers + +------+ + | Care Bingo Cashier Name | Role | Phone | + +------+ + | Matt Arreguin MD | PCP | | + +------+ + Reason for Visit + +--------+ + | Reason | Onset | Comments | | | Date | | + +--------+ + | Eye examination | 08/12/ | | | | 2009 | | + +--------+ + Encounter Details +--------+---------+ + + + | Date | Type | Department | Care Team | Description | +--------+---------+ + + + | 08/11/ | Office | [facility] | | Benign neoplasm of | | 2009 | Visit | [place] | | choroid (Primary Dx) | | | | Photography at [facility] | | | | | | [address] | | | | | | [facility] | | | | | | and Healing, | | | | | | Building | | | | | | Floor [place], [place] | | | | | | [address] | | | | | | [phone] | | | +--------+---------+ + + + [...] + documented as of this encounter Progress Adan Burden - 08/12/2010 11:21 AM BODequan Reyes was seen in the [facility] [place] [facility] otography/Ultrasound Department today, 08/11/2010, for ultrasound and fundus photography, OD. The overall echographic appearance of the lesion does not appear to have changed. However, the previous photos show what suggests an extrascleral component that is not evide nt on today's exam. documentvarinder d in this encounter Plan of Treatment Not on filedocumented as of this encounter Visit Diagnoses + + | Diagnosis | + + | Benign neoplasm of choroid - Primary | + + documented in this encounter"
--- OUTSIDE RECORDS SUMMARY | ~2020-07-29 | XMS | Encounter Summary ---
Demographics + + + | Address | [address] | | | [place] [address] | + + + | Home Phone | | + + + | Preferred Language | Unknown | + + + | Marital Status | Single | + + + | Cheondoism Affiliation | Unknown | + + + | Race | Unknown | + + + | Ethnic Group | Other Race | + + + Author + + + | Organization | Unknown | + + + | Address | Unknown | + + + | Phone | Unavailable | + + + Support + + +---------+ + | Name | Relationship | Address | Phone | + + +---------+ + | None None | ECON | Unknown | Unavailable | + + +---------+ + Care Team Providers + +------+ + | Care Nuclear Operator Name | Role | Phone | + +------+ + PCP | Unavailable | + +------+ + Encounter Details +--------+ + + + + | Date | Type | Department | Care Team | Description | +--------+ + + + + | 01/11/ | Results | | Other, Faculty | | | 2006 | Only | | [phone] | | +--------+ + + + + [...] Not on filedocumented as of this encounter Procedures + +--------+ + + + | Procedure Name | Priori | Date/Time | Associated Diagnosis | Comments | | | ty | | | | + +--------+ + + + | DERMATOPATHOLOGY(WET | Routin | 01/11/2006 | | Results for this | | [facility]) | e | | | procedure are in the | | | | | | results section. | + +--------+ + + + documented in this encounter Results DERMATOPATHOLOGY(WET [place]) (01/11/2006) + + + + + + | Component | Value | Ref Range | Performed | Pathologist | | | | | At | Signature | + + + + + + | DERMATOPATH | SOURCE OF SPECIMEN:A | | | | | OLOGY(WET | FIRST TISSUE LEVEL IV | | | | | MNT) | [id number] OF | | | | | | SPECIMEN:B FIRST TISSUE | | | | | | [place] [address] | | | | | | CLINICAL DESCRIPTION:A. | | | | | | Punch, 4mm, lt. lower | | | | | | leg; pruritic | | | | | | lichenified plaque on | | | | | | legs andhyperkeratotic | | | | | | pruritic plaques on | | | | | | palms and soles; ? | | | | | | psoriasis, eczema, orany | | | | | | primary disease process | | | | | | vs LSC.B. Punch, 4mm, | | | | | | lt. hand; pruritic | | | | | | lichenified plaque on | | | | | | legs andhyperkeratotic | | | | | | pruritic plaques on | | | | | | palms and soles; ? | | | | | | psoriasis, eczema, orany | | | | | | primary disease process | | | | | | vs LSC. GROSS | | | | | | DESCRIPTION:A. Lt. | | | | | | lower leg, punch, 0.4 x | | | | | | 0.4 cm, bisected.B. | | | | | | Lt. hand, punch, 0.4 x | | | | | | 0.4 cm, bisected. | | | | | | MICROSCOPIC | | | | | | DESCRIPTION:A. There | | | | | | is confluent | | | | | | parakeratosis, a | | | | | | decreased granular | | | | | | layer,psoriasiform | | | | | | epidermal hyperplasia | | | | | | and dilated blood | | | | | | vessels surrounded byan | | | | | | infiltrate in the | | | | | | edematous papillary | | | | | | dermis. B. There is | | | | | | confluent parakeratosis, | | | | | | a decreased granular | | | | | | layer,psoriasiform | | | | | | epidermal hyperplasia | | | | | | and dilated blood | | | | | | vessels surrounded byan | | | | | | infiltrate in the | | | | | | edematous papillary | | | | | | dermis. DIAGNOSIS:A: | | | | | | PSORIASIS. B: | | | | | | PSORIASIS.NOTE: | | | | | | There is | | | | | | lichenification present | | | | | | in both specimens. | | | | | | JEANETH/[email or web address] | | | | | | Diagnostician: Brandon | | | | | | Jaydon Bradshaw Jr., | | | | | | Tamikoi | | | | | | william Signed 01/18/2006 | | | | + + + + + + + + | Specimen | + + | | + + + + + | Narrative | Performed At | + + + | Ordered by Cleo Pak | | + + + + + + + + | Performing | Address | City/State/Zipcode | Phone Number | | Organization | | | | + + + + + | JUNIOR | [address] | [place] [address] | | | DERMATOPATHOLOGY | [address] | | | + + + + + documented in this encounter Visit Diagnoses Not on filedocumented in this encounter"
--- OUTSIDE RECORDS SUMMARY | ~2020-07-29 | XMS | Encounter Summary ---
Demographics + + + | Address | [address] | | | [place] [address] | + + + | Home Phone | | + + + | Preferred Language | Unknown | + + + | Marital Status | Single | + + + | Quaker Affiliation | Unknown | + + + | Race | Unknown | + + + | Ethnic Group | Other Race | + + + Author + + + | Author | [facility] | + + + | Organization | [facility] | + + + | Address | Unknown | + + + | Phone | Unavailable | + + + Support + + +---------+ + | Name | Relationship | Address | Phone | + + +---------+ + | None None | ECON | Unknown | Unavailable | + + +---------+ + Care Team Providers + +------+ + | Care Montessori Lead Teacher Name | Role | Phone | + +------+ + | Matt Arreguin MD | PCP | | + +------+ + Reason for Visit + +--------+ + | Reason | Onset | Comments | | | Date | | + +--------+ + | Eye examination | 05/21/ | | | | 2009 | | + +--------+ + Encounter Details +--------+---------+ + + + | Date | Type | Department | Care Team | Description | +--------+---------+ + + + | 05/21/ | Office | [facility] | | Benign neoplasm of | | 2009 | Visit | [place] | | choroid (Primary Dx) | | | | Photography at [facility] | | | | | | [address] | | | | | | [facility] | | | | | | and Healing, | | | | | | Building | | | | | | Floor [place], [place] | | | | | | [address] | | | | | | [phone] | | | +--------+---------+ + + + [...] this encounter Progress Notes Adan Spencer - 05/21/2010 12:31 PM BODequan Reyes was seen in the [facility] [place] [facility] otography/Ultrasound Department today, 05/21/2010, for fundus photography, OD. The macula lesion and the retinal detachment were imaged again for comparison. Standardized, diagnostic A-scan appears to show the internal reflectivity consistent with h emangioma. A retinal hole or tear could not be found but there is mild vitreous traction to the detach ment superiorly. documented in this encounte r Plan of Treatment Not on filedocumented as of this encounter Visit Diagnoses + + | Diagnosis | + + | Benign neoplasm of choroid - Primary | + + documented in this encounter"
--- OUTSIDE RECORDS SUMMARY | ~2020-07-29 | XMS | Encounter Summary ---
Demographics + + + | Address | [address] | | | [place] [address] | + + + | Home Phone | | + + + | Preferred Language | Unknown | + + + | Marital Status | Single | + + + | Protestant Affiliation | Unknown | + + + | Race | Unknown | + + + | Ethnic Group | Other Race | + + + Author + + + | Author | [facility] | + + + | Organization | [facility] | + + + | Address | Unknown | + + + | Phone | Unavailable | + + + Support + + +---------+ + | Name | Relationship | Address | Phone | + + +---------+ + | None None | ECON | Unknown | Unavailable | + + +---------+ + Care Team Providers + +------+ + | Care Ship/Rec/Doc Control Name | Role | Phone | + +------+ + | Matt Arreguin MD | PCP | | + +------+ + Encounter Details +--------+ + + + + | Date | Type | Department | Care Team | Description | +--------+ + + + + | 01/21/ | Ancillary | [employer] [facility] | | | | 2005 | Registratio | Practice [address] | | | | | n | [facility] | | | | | | [place] [address] | | | | | | [phone] | | | +--------+ + + + [...]
--- OUTSIDE RECORDS SUMMARY | ~2020-07-29 | XMS | Encounter Summary ---
Demographics + + + | Address | [address] | | | [place] [address] | + + + | Home Phone | | + + + | Preferred Language | Unknown | + + + | Marital Status | Single | + + + | Buddhism Affiliation | Unknown | + + + | Race | Unknown | + + + | Ethnic Group | Other Race | + + + Author + + + | Author | [facility] | + + + | Organization | [facility] | + + + | Address | Unknown | + + + | Phone | Unavailable | + + + Support + + +---------+ + | Name | Relationship | Address | Phone | + + +---------+ + | None None | ECON | Unknown | Unavailable | + + +---------+ + Care Team Providers + +------+ + | Care Oncology Rn Name | Role | Phone | + +------+ + | Matt Arreguin MD | PCP | | + +------+ + Encounter Details +--------+ + + + + | Date | Type | Department | Care Team | Description | +--------+ + + + + | 09/24/ | Document-Sc | Health Information | Unknown . | | | 2017 | anned | Services [phone] | | | | | | [address] | | | | | | Mailcode: [id number] | | | | | | [facility] | | | | | | [place], [place] | | | | | | [address] | | | | | | [phone] | | | +--------+ + + + [...]
--- OUTSIDE RECORDS SUMMARY | ~2020-07-29 | XMS | Clinical Summary ---
Demographics + + + | Address | [address] | | | [place] [address] | + + + | Home Phone | | + + + | Preferred Language | Unknown | + + + | Marital Status | Single | + + + | Gnosticist Affiliation | Unknown | + + + | Race | Unknown | + + + | Ethnic Group | Other Race | + + + Author + + + | Author | NON REVENUE LOCATIONS | + + + | Organization | NON REVENUE LOCATIONS | + + + | Address | Unknown | + + + | Phone | Unavailable | + + + Support + + +---------+ + | Name | Relationship | Address | Phone | + + +---------+ + | None None | ECON | Unknown | Unavailable | + + +---------+ + Care Team Providers + +------+ + | Care Regulatory Product Manager Name | Role | Phone | + +------+ + | Matt Arreguin MD | PCP | | + +------+ + Source Comments JUNIOR is fully live on both [facility] Ambulatory and [facility] InPatient.[facility] Allergies + + + + + + | Active Allergy | Reactions | Severity | Noted | Comments | | | | | Date | | + + + + + + | Penicillins | | High | 04/15/20 | | | | | | 10 | | + + + + + + Medications + + + +---------+------+------+-------+ | Medication | Sig | Dispensed | Refills | Star | End | Statu | | | | | | t | Date | s | | | | | | Date | | | + + + +---------+------+------+-------+ | ATORVASTATIN | Take by mouth. | | 0 | | | Activ | | CALCIUM (LIPITOR | | | | | | e | | ORAL) | | | | | | | + + + +---------+------+------+-------+ | warfarin 7.5 mg | Take 7.5 mg by mouth | | 0 | | | Activ | | Oral Tablet | once daily. | | | | | e | + + + +---------+------+------+-------+ | | Take by mouth. | | 0 | | | Activ | | PROPOXYPHENE/ACETAMI | | | | | | e | | NOPHEN (DARVOCET | | | | | | | | A500 ORAL) | | | | | | | + + + +---------+------+------+-------+ | HYDROCODONE | Take by mouth. 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 | + + + Family History + + +------+ + | Medical History | Relation | Name | Comments | + + +------+ + | Stroke | | | | + + +------+ + + +------+--------+ + | Relation | Name | Status | Comments | + +------+--------+ + Social History + + + +--------+ [...] on file | | + + + Last Filed Vital Signs Not on file Plan of Treatment + + +-------+ + | Health Maintenance | Due Date | Last | Comments | | | | Done | | + + +-------+ + | Pneumococcal | | | | | vaccination (1 | 3 | | | | - PPSV23) | | | | + + +-------+ + | Influenza (Flu) | | | | | vaccination (#1) | 0 | | | + + +-------+ + Results Not on filefrom Last 3 Months Insurance + +--------+ +--------+ + +--------+ | Payer | Benefi | Subscriber | Effect | Phone | Address | Type | | | t Plan | ID | js | | | | | | / | | Dates | | | | | | Group | | | | | | + +--------+ +--------+ + +--------+ | MEDICARE | MEDICA | [id number] | 11/08/19 | [phone] | [address] | [address] | | | RE A & | | 11-Pre | 1 | [address] | [address] | | | B | | sent | | [place] | | | | | | | | [phone] | | + +--------+ +--------+ + +--------+ | [facility] | | [id number] | Effect | | | Agency | | SERVICE | | | js | | | | | | HEALTH | | for | | | | | | | | all | | | | | | SERVIC | | dates | | | | | | E | | | | | | + +--------+ +--------+ + +--------+ + +--------+ +--------+ + + | Guarantor Name | Accoun | Relation to | Date | Phone | Billing Address | | | t Type | Patient | of | | | | | | | | | | + +--------+ +--------+ + + | Dequan Reyes | Person | Self | [birth year] | [address] | | | sharlene/Michael | | 1950 | [phone] | [place] [address] | | | brianne | | | [address] (Home) | | + +--------+ +--------+ + +"
--- OUTSIDE RECORDS SUMMARY | ~2020-07-29 | XMS | Encounter Summary ---
Demographics + + + | Address | [address] | | | [place] [address] | + + + | Home Phone [...] Team Providers + +------+ + | Care Military Source Operations Officer Name | Role | Phone | + +------+ + | Matt Arreguin MD | PCP | | + +------+ + Reason for Visit + +--------+ + | Reason | Onset | Comments | | | Date | | + +--------+ + | Ultrasound procedure | 08/12/ | | | | 2009 | | + +--------+ + Encounter Details +--------+---------+ + + + | Date | Type | Department | Care Team | Description | +--------+---------+ + + + | 08/11/ | Office | [facility] | Nicolas Rose | Benign neoplasm of | | 2009 | Visit | [facility] | Avi Harris MD [address] | choroid (Primary Dx) | | | | [place] [address] | Adelfo Ordonez | | | | | [address] | [place], [place] | | | | | [facility], [facility] | [address] | | | | | [place], [place] | [phone] | | | | | [address] | [...] this encounter Progress Notes Adan Spencer - 08/12/2010 11:22 AM BODequan Reyes was seen in the [facility] otography/Ultrasound Department today, 08/11/2010, for ultrasound and fundus photography, OD. The overall echographic appearance of the lesion does not appear to have changed. However, the previous photos show what suggests an extrascleral component that is not evide nt on today's exam. Report finalized. NICOLAS ROSE MD documented in this encounter Plan of Treatment + +---------+--------+ + + | Name | Type | Priori | Associated Diagnoses | Order Schedule | | | | ty | | | + +---------+--------+ + + | [facility] | Imaging | Routin | Benign neoplasm of | Ordered: 08/12/2010 | | | | e | choroid | | + +---------+--------+ + + documented as of this encounter Visit Diagnoses + + | Diagnosis | + + | Benign neoplasm of choroid - Primary | + + documented in this encounter"
--- OUTSIDE RECORDS SUMMARY | ~2020-07-29 | XMS | Encounter Summary ---
Demographics + + + | Address | [address] | | | [place] [address] | + + + | Home Phone | | + + + | Preferred Language | Unknown | + + + | Marital Status | | + + + | Sabianist Affiliation | Unknown | + + + | Race | White | + + + | Ethnic Group | Unknown | + + + Author + + + | Author | [facility] | | | and [place] | + + + | Organization | [facility] | | | and [place] | + + + | Address | Unknown | + + + | Phone | Unavailable | + + + Care Team Providers + +------+ + | Care Education Liaison Name | Role | Phone | + +------+ + PCP | Unavailable | + +------+ + Encounter Details +--------+ + + + + | Date | Type | Department | Care Team | Description | +--------+ + + + + | 03/31/ | Hospital | [facility] | Enrike Walsh, | | | 2000 | Encounter | MED CTR MP INTRA OP | MD [address] [facility] | | | | | [address] | [place] | | | | | [place] | [address] | | | | | [address] | | | | | | [phone] | | | +--------+ + + + [...] | | 2019 | Visit | | [address] | | | | | | [place] [address] | | | | | | [phone] | | | | | | | | +--------+---------+ + + + documented as of this encounter Visit Diagnoses Not on filedocumented in this encounter"
--- OUTSIDE RECORDS SUMMARY | ~2020-07-29 | XMS | Encounter Summary ---
Demographics + + + | Address | [address] | | | [place] [address] | + + + | Home Phone | | + + + | Preferred Language | Unknown | + + + | Marital Status | Single | + + + | Taoist Affiliation | Unknown | + + + | Race | Unknown | + + + | Ethnic Group | Other Race | + + + Author + + + | Author | [facility] | + + + | Organization | [facility] | + + + | Address | Unknown | + + + | Phone | Unavailable | + + + Support + + +---------+ + | Name | Relationship | Address | Phone | + + +---------+ + | None None | ECON | Unknown | Unavailable | + + +---------+ + Care Team Providers + +------+ + | Care Machine Spreader Name | Role | Phone | + +------+ + | Unknown | PCP | Unavailable | + +------+ + Reason for Visit + + + | Reason | Comments | + + + | New patient | Referred by Dr Barry at [facility] for retinal | | consultation | detachment in the the right eye. | + + + | Retinal detachment | Pt reports that the vision has been decreased in the Right eye | | | for many years. | + + + | AMD - Age-related | | | macular degeneration | | + + + Encounter Details +--------+---------+ + + + | Date | Type | Department | Care Team | Description | +--------+---------+ + + + | 04/15/ | Office | [facility] | Patricia Quinonez, | Retinal detachment | | 2009 | Visit | [facility] at | [address] | with retinal defect, | | | | [facility] [address] | [place] | unspecified | | | | [address] | [place], [place] | (Primary Dx) | | | | [facility], [facility] | [address] | | | | | [place], [place] | [phone] | | | | | [address] | [...] documented as of this encounter Progress Notes Patricia Quinonez MD - 04/15/2010 1:57 PM PDTFormatting of this note might be different f rom the original. Retina Division Progress Note New Visit 04/15/2010 CC: Referred by Dr. Raj Barry, Patient presents with: New patient consultation - Referred by Dr Barry at [facility] for retinal det achment in the the right eye. Retinal detachment - Pt reports that the vision has been decreased in the Right eye for m any years. AMD - Age-related macular degeneration HPI: Dequan Reyes is a 60 y.o. Male here for consultation and management for RD right eye. He has had a incomplete Visudyne treatment OD on 02/28/[address] Barry. Pain:No pain (0 of 0-10) POH:See specialty comments PMH: Reviewed in [facility] SH: Reviewed in [facility] FH: No known family history of AMD, cataract, glaucoma, retinal detachment or blindness fr om unknown causes ROS: A review of constitutional, ophthalmic, otolaryngologic, integumentary, cardiovascular , respiratory, gastrointestinal, genitourinary, neurologic, musculoskeletal, and psychiatric systems were negative except as noted above or in the new patient questionaire. Allergies: Allergies Allergen Reactions Penicillins Meds: ATORVASTATIN CALCIUM (LIPITOR ORAL), Take by mouth. PROPOXYPHENE/ACETAMINOPHEN (DARVOCET A500 ORAL), Take by mouth. warfarin 7.5 mg Oral Tablet, Take 7.5 mg by mouth once daily. Examination: 04/15/2010 Va sc Va cc PH IOP 1:55 PM Right Eye HM w/dir 10 Left Eye 20/25-2 15 Pupils poor reactivity OD, + APD OD, OS reactive, No RAPD EOM Full, Orthophoric A&O x 4 Both eyes dilated with Mydriacyl and Neosynephrine OU 1:55 PM Initial hx, allergies, meds, Va, IOP and above exam elements reviewed / performed by Brittnee Anderson SLE OD OS Lids Nl lids, lashes, orbit Nl lids, lashes, orbit Conj White and quiet White and quiet Cornea Nl. tear film, epithelium, stroma, and endothelium Nl. tear film, epithelium, stroma , and endothelium AC Deep and quiet Deep and quiet Iris Normal Normal Lens 2+ NS 2+ NS Ant Vit 2+ vit cell and debris some pigmented Clear DFE OD OS Hazy view D: 0.2 M: orange pigmented lesion elevated and under the macula appears to extend inferiorly macul a is detached though, there are a few spots of hyperpigmentation superior to the macula P: inferior exudative RD Vasc: unremarkable Vit: Unremarkable, + Vitreous haze Clear view Disc: 0.3 Macula: flat Periphery: flat, attached Vasculature: unremarkable Diagnostics Ordered OD OS OCT FA Color Others B scan with exudative detachment over macula, dome-shaped macular mass; A scan with moderate internal reflectivity. IMPRESSION: 1. Inferior bullous retinal detachment overlying a dome-shaped choroidal mass with moderate internal reflectivity: - I am suspicious for either a metastasis or a choroidal melanoma. Given his history of a s troke in 01/11 and his left leg DVT, I am suspicious that he may be hypercoagulable, perhaps from an occult malignancy. However, a metastasis is more likely to have high internal reflec tivity. Regarding possible choroidal melanoma, the dome-shaped appearance is consistent wit h a melanoma, but Mr Reyes' heritage and the massive exudative detachment ma ke a melanoma less likely. Mr Reyes has been treated with a laser (perhaps PDT) 1 year ago for a suspected hemangioma, but did not respond; I think a choroidal hemangioma is also less likely. PLAN: - I spoke with his PMD, Dr Arreguin in [place] ([phone]) to encourage him to initiate a metastatic work-up, including CBC, CXR, and abdominal CT with and without contrast. - Once the metastatic work-up has been done, Mr Reyes can follow up with Dr De Luna in ocula r oncology. Patient seen and examined with Dr. Mer Torres, ocular oncology fellow I reviewed all components above, made necessary revisions and performed critical portions o f the history and examination. PATRICIA QUINONEZ MD documented in this encounter Miscellaneous Notes Scan - Other, Faculty - 05/16/2010 1:13 PM PDT can - Other, Faculty - 05/16/2010 1:12 PM PDT documented in this encou nter Plan of Treatment + + +--------+ + + | Name | Type | Priori | Associated Diagnoses | Order Schedule | | | | ty | | | + + +--------+ + + | ULTRASOUND, B SCAN | Procedures | Routin | Retinal detachment | Expected: | | | | e | with retinal | 04/15/2010, Expires: | | | | | defect, unspecified | 06/14/2010 | + + +--------+ + + documented as of this encounter Visit Diagnoses + + | Diagnosis | + + | Retinal detachment with retinal defect, unspecified - Primary | + + documented in this encounter"
--- OUTSIDE RECORDS SUMMARY | ~2020-07-29 | XMS | Encounter Summary ---
Demographics + + + | Address | [address] | | | [place] [address] | + + + | Home Phone | | + + + | Preferred Language | Unknown | + + + | Marital Status | | + + + | Tenriism Affiliation | Unknown | + + + | Race | White | + + + | Ethnic Group | Unknown | + + + Author + + + | Author | [facility] | | | and [place] | + + + | Organization | [facility] | | | and [place] | + + + | Address | Unknown | + + + | Phone | Unavailable | + + + Care Team Providers + +------+ + | Care Approver Name | Role | Phone | + +------+ + PCP | Unavailable | + +------+ + Encounter Details +--------+ + + + + | Date | Type | Department | Care Team | Description | +--------+ + + + + | 06/30/ | Hospital | [facility] | | | | 2001 | Encounter | MED CTR XRAY [address] | | | | | | [place] | | | | | | [place] [address] | | | | | | [phone] | | | +--------+ + + + [...] | | 2019 | Visit | | [address] | | | | | | [place] [address] | | | | | | [phone] | | | | | | | | +--------+---------+ + + + documented as of this encounter Visit Diagnoses Not on filedocumented in this encounter"
--- OUTSIDE RECORDS SUMMARY | ~2020-07-29 | XMS | Encounter Summary ---
Demographics + + + | Address | [address] | | | [place] [address] | + + + | Home Phone | | + + + | Preferred Language | Unknown | + + + | Marital Status | Single | + + + | Restorationism Affiliation | Unknown | + + + | Race | Unknown | + + + | Ethnic Group | Other Race | + + + Author + + + | Author | [facility] | + + + | Organization | [facility] | + + + | Address | Unknown | + + + | Phone | Unavailable | + + + Support + + +---------+ + | Name | Relationship | Address | Phone | + + +---------+ + | None None | ECON | Unknown | Unavailable | + + +---------+ + Care Team Providers + +------+ + | Care Research Associate Molecular Biology Name | Role | Phone | + +------+ + | Matt Arreguin MD | PCP | | + +------+ + Reason for Visit + +--------+ + | Reason | Onset | Comments | | | Date | | + +--------+ + | Follow-up visit | | | + +--------+ + | Follow-up visit | 03/04/ | | | | 2010 | | + +--------+ + Encounter Details +--------+---------+ + + + | Date | Type | Department | Care Team | Description | +--------+---------+ + + + | 03/04/ | Office | [facility] | Omer De Luna, | Benign neoplasm of | | 2010 | Visit | [facility] at | MD [address] | choroid (Primary Dx) | | | | [facility] [address] | [address]elf[address] Ordonez | | | | | [facility] | [place], [place] | | | | | and Healing, | [address] | | | | | | [phone] | | | | | Floor [place], [place] | | | | | | [address] | | | | | | [phone] | | | +--------+---------+ + + + [...] Progress Notes Omer De Luna MD - 03/04/2011 8:36 AM PDTFormatting of this note might be different fro m the original. History of Present Illness: Dequan Reyes is a 60 y.o. male returns for follow up of choroi mark hemangioma. S/P photodynamic therapy OD 12/02/10, 09/09/10 & 06/19/10. Patient reports t he vision in his OD seems field representatives director but he cannot see any better. Thinks peripheral vision is worse OD. Medications: No eye medications. Systemic medications reviewed in EPIC. Review of Systems: Right Left Loss of Vision N N Eye Pain N N Mental Status: Oriented times three Examination: VAsc RE: VAcc RE: HM VAph sc RE: VAph cc RE: VAsc LE: VAcc LE: 20/25+2 VAph sc LE: VAph cc LE: 20/20-1 IOP: RE 14; LE 15 by [place] at 8:42 AM RE LE Pupils 2 mm equal round and reactive to light; no APD 2 mm equal round and reactive to li ght; no APD Motility appears slightly XT, full ROM ortho, full ROM CVF inferior/temporal field only full Dilating drops placed: tropicamide 1% and neosynephrine 2.5% OU at 8:45 AM Varsha Salinas Cot, performed, reviewed or revised the above history, medications, allergie s, as well as performed elements noted in the Base Ophthalmology Exam, such as visual acuity , pupils, EOMs, CVF and IOP. External: OD normal, OS normal Slit lamp exam: RE LE Lids/Lacrimal/Tear: normal Conjunctiva: normal Cornea: epithelium intact, normal stromal thickness, endothelium normal AC: deep and clear Iris: normal Lens: 2+ NS Lids/Lacrimal/Tear: verruca vulgaris on upper eyelid Conjunctiva: nasal subconjunctival hemorrhage Cornea: epithelium intact, normal stromal thickness, endothelium normal AC: deep and clear Iris: normal Lens: 2+ NS Fundus Exam: RE LE Vitreous: pigment dispersion Disc: CDR 0.2 Macula: reddish-yellow, elevated lesion with no drusen, no lipofuscin but now has surface e xudates or fibrosis Vessels: sclerotic Periphery: there is inferior subretinal fluid with overlying vitreous pigment; no tears are identified Vitreous: normal Disc: CDR 0.2 Macula: normal Vessels: normal Periphery: normal Diagnostic studies: Color Fundus Photography: There is an elevated, yellow-orange choroidal lesion in the macu la that has not changed in margins, but has an interval increase in surface fibrosis or exud ate. Echography: B-scan shows the choroidal lesion along the 9:00 meridian in the macula. The le radames has decreased in overall thickness from 3.0 mm to 2.3 mm. The lesion measures 9.1 mm in longitudinal diameter and 9.4 mm in transverse diameter. There is persistent subretinal fluid present. 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 Continue to monitor for further resolution. I do not fell that add itional treatment would be beneficial at this time. 2. Subretinal fluid: If the subretinal fluid does not show continued resolution, will cons ider draining the fluid with vitrectomy. I have reviewed and edited history, sound recording technician, resident and/or fellow portion of documenta tion, and performed all elements of the above examination documentation. Omer DeL una MD Professor and Lluvia Chair, Department of Ophthalmology Director, [facility] [phone] documented in this en counter Plan of Treatment + + +--------+ + + | Name | Type | Priori | Associated Diagnoses | Order Schedule | | | | ty | | | + + +--------+ + + | COLOR PHOTOGRAPHY | Procedures | Routin | Benign neoplasm of | Expected: | | | | e | choroid | 03/04/2011, Expires: | | | | | | 05/03/2011 | + + +--------+ + + | ULTRASOUND, B SCAN | Procedures | Routin | Benign neoplasm of | Expected: | | | | e | choroid | 03/04/2011, Expires: | | | | | | 05/03/2011 | + + +--------+ + + documented as of this encounter Procedures + +--------+ + + + | Procedure Name | Priori | Date/Time | Associated Diagnosis | Comments | | | ty | | | | + +--------+ + + + | MD FUNDAL | Routin | 03/04/2011 | Benign neoplasm of | | | PHOTOGRAPHY | e | 9:16 AM | choroid | | | | | PDT | | | + +--------+ + + + documented in this encounter Visit Diagnoses + + | Diagnosis | + + | Benign neoplasm of choroid - Primary | + + documented in this encounter"
--- OUTSIDE RECORDS SUMMARY | ~2020-07-29 | XMS | Encounter Summary ---
Demographics + + + | Address | [address] | | | [place] [address] | + + + | Home Phone | | + + + | Preferred Language | Unknown | + + + | Marital Status | Single | + + + | Sabianism Affiliation | Unknown | + + + | Race | Unknown | + + + | Ethnic Group | Other Race | + + + Author + + + | Author | [facility] | + + + | Organization | [facility] | + + + | Address | Unknown | + + + | Phone | Unavailable | + + + Support + + +---------+ + | Name | Relationship | Address | Phone | + + +---------+ + | None None | ECON | Unknown | Unavailable | + + +---------+ + Care Team Providers + +------+ + | Care Youth Program Director Name | Role | Phone | + +------+ + | Matt Arreguin MD | PCP | | + +------+ + Reason for Visit + +--------+ + | Reason | Onset | Comments | | | Date | | + +--------+ + | Follow-up visit | | | + +--------+ + | Follow-up visit | 08/11/ | | | | 2009 | | [...] | [place], | | | | | Benign | Matt | Omer Lopes MD | | | | | neoplasm of | MD Satya | [address] | | | | | choroid | [place] | [place] | | | | | Procedures | INTERNAL | Blvd | | | | | TX EYE EXAM | MEDICINE | [place], [place] | | | | | & TREATMENT | [address] | [address] | | | | | [place] FUNDAL | [place] | Phone: | | | | | PHOTOGRAPHY | [address] | [phone] | | | | | [place] [facility] | [place], | Fax: | | | | | B-SCAN | [place] [address] | [phone] | | | | | | Phone: | | | | | | | [phone] | | | | | | | Fax: | | | | | | | [phone] | | +--------+--------+ + + + + Encounter Details +--------+---------+ + + + | Date | Type | Department | Care Team | Description | +--------+---------+ + + + | 08/11/ | Office | [facility] | Omer De Luna, | Benign neoplasm of | | 2009 | Visit | [facility] at | MD [address] | choroid (Primary Dx) | | | | H [address] | [place]z | | | | | [place] for [facility] | [place], [place] | | | | | and Healing, | [address] | | | | | Building | [phone] | | | | | Floor [place], [place] | | | | | | [address] | | | | | | [phone] | | | +--------+---------+ + + + [...] documented as of this encounter Progress Notes Varsha Tracey - 08/11/2010 1:01 PM PDTFormatting of this note might be different from the o riginal. History of Present Illness: Dequan Reyes is a 60 y.o. male s/p PDT to hemangioma OD . Patient reports his vision is now appears hoffmann instead of the black it was previously. Mr. Reyes has previously had laser treatment to the choroidal lesion with a clinical di agnosis of hemangioma. Patient reports his vision OS continues to be good. PCP - Dr. Arreguin recently completed [...] VAph cc RE: VAsc LE: VAcc LE: 20/20-2 VAph sc LE: VAph cc LE: IOP: RE 16; LE 17 by Tonopen at 1:04 PM RE LE Pupils 2 mm equal round and reactive to light; no APD 2 mm qual round and reactive to light ; no APD Motility ortho, full ROM ortho, full ROM CVF full full Dilating drops placed: tropicamide 1% and neosynephrine 2.5% OD only at 1:06 PM Varsha Salinas Cot, performed, reviewed or revised [...] Exam: RE LE Vitreous: normal Disc: CDR 0.2 Macula: reddish, elevated lesion with no drusen, no lipofuscin Vessels: normal Periphery: normal Vitreous: normal Disc: CDR 0.2 Macula: normal Vessels: normal Periphery: normal Diagnostic Studies: Color Fundus Photography: There is some atrophy of the temporal portion of the lesion and there is a change in the surface of the lesion compared to the photographs of 05/2010. Echography: There is a decrease in the amount of the subretinal fluid and there is a slight decrease in the thickness of the lesion. Assessment and Plan: Choroidal hemangioma, OD: The patient has achieved some response to PDT treatment performe d in 06/2010. However, he will likely benefit from additional treatment. I have advised a r epeat PDT treatment for follow-up. I have reviewed and edited history, biofuels production technician, resident and/or fellow portion of documenta tion, and performed all elements of the above examination documentation. Omer De Luna MD Professor and Lluvia Chair, Department of Ophthalmology Director, [facility] [phone] documented in this en counter Miscellaneous Notes Scan - Other, Faculty - 08/11/2010 2:55 PM PDT documented in this encangi perlaer Plan of Treatment + + +--------+ + + | Name | Type | Priori | Associated Diagnoses | Order Schedule | | | | ty | | | + + +--------+ + + | COLOR PHOTOGRAPHY | Procedures | Routin | Benign neoplasm of | Expected: | | | | e | choroid | 08/11/2010, Expires: | | | | | | 10/10/2010 | + + +--------+ + + | ULTRASOUND, B SCAN | Procedures | Routin | Benign neoplasm of | Expected: | | | | e | choroid | 08/11/2010, Expires: | | | | | | 10/10/2010 | + + +--------+ + + documented as of this encounter Procedures + +--------+ + + + | Procedure Name | Priori | Date/Time | Associated Diagnosis | Comments | | | ty | | | | + +--------+ + + + | TX FUNDAL | Routin | 08/11/2010 | Benign neoplasm of | | | PHOTOGRAPHY | e | 1:40 PM | choroid | | | | | PDT | | | + +--------+ + + + documented in this encounter Visit Diagnoses + + | Diagnosis | + + | Benign neoplasm of choroid - Primary | + + documented in this encounter"
--- OUTSIDE RECORDS SUMMARY | ~2020-07-29 | XMS | Encounter Summary ---
Demographics + + + | Address | [address] | | | [place] [address] | + + + | Home Phone | | + + + | Preferred Language | Unknown | + + + | Marital Status | Single | + + + | Sabianist Affiliation [...] Team Providers + +------+ + | Care Monkey Trainer Name | Role | Phone | + +------+ + | Matt Arreguin MD | PCP | | + +------+ + Reason for Visit + +--------+ + | Reason | Onset | Comments | | | Date | | + +--------+ + | Eye examination | 03/04/ | | | | 2010 | | + +--------+ + Encounter Details +--------+---------+ + + + | Date | Type | Department | Care Team | Description | +--------+---------+ + + + | 03/04/ | Office | [facility] | | Benign neoplasm of | | 2010 | Visit | [facility] | | choroid (Primary | | | | Photography at [facility] | | Dx); Hemangioma of | | | | [address] | | unspecified site | | | | [place] for [facility] | | | | | | and Healing, | | | | | | Building | | | | | | Floor [place], [place] | | | | | | [address] | | | | | | [phone] | | | +--------+---------+ + + + [...] of this encounter Progress Adan Burden - 03/04/2011 5:05 PM BODequan Reyes was seen in the [facility] otography/Ultrasound Department today, 03/04/2011, for ultrasound and fundus photography, OD. The B-scan shows the choroidal lesion along the 9:00 meridian in the macula. The retina appears detached across the lesion. The underlying sclera appears intact but diffuse. See I Ultrasound Flowsheet for chronological tumor information. documented in this encounte r Plan of Treatment Not on filedocumented as of this encounter Visit Diagnoses + + | Diagnosis | + + | Benign neoplasm of choroid - Primary | + + | Hemangioma of unspecified site | + + documented in this encounter"
--- OUTSIDE RECORDS SUMMARY | ~2020-07-29 | XMS | Clinical Summary ---
Demographics + + + | Address | [address] | | | [place] [address] | + + + | Home Phone | | + + + | Preferred Language | Unknown | + + + | Marital Status | | + + + | Uatsdin Affiliation | Unknown | + + + | Race | White | + + + | Ethnic Group | Unknown | + + + Author + + + | Author | [facility] | | | and [place] | + + + | Organization | [facility] | | | and [place] | + + + | Address | Unknown | + + + | Phone | Unavailable | + + + Care Team Providers + +------+ + | Care Telegraph Installer Name | Role | Phone | + +------+ + | Sonia Physician | OLU | Unavailable | + +------+ + Allergies + + + + + + | Active Allergy | Reactions | Severity | Noted | Comments | | | | | Date | | + + + + + + | Penicillins | | | 08//20 | | | | | | 11 | | + + + + + + Medications + + + +---------+------+------+-------+ | Medication | Sig | Dispensed | Refills | Star | End | Statu | | | | | | t | Date | s | | | | | | Date | | | + + + +---------+------+------+-------+ | atorvaSTATin | as directed | | 0 | 09/1 | | Activ | | (LIPITOR) 10 mg | | | | 2/20 | | e | | tablet | | | | 12 | | | + + + +---------+------+------+-------+ | Warfarin Sodium | TABS as directed | | 0 | 09/1 | | Activ | | (COUMADIN PO) | | | | 2/20 | | e | | | | | | 12 | | | + + + +---------+------+------+-------+ | | TABS as directed | | 0 | 09/1 | | Activ | | Hydrocodone-Acetamin | | | | 2/20 | | e | | ophen (VICODIN PO) | | | | 12 | | | + + + +---------+------+------+-------+ Active Problems Not on file Social History + +-------+ +--------+------+ | Tobacco [...] + + + Last Filed Vital Signs + +---------+ + + | Vital Sign | Reading | Time Taken | Comments | + +---------+ + + | Blood Pressure | 140/78 | 06/10/2011 12:00 AM | | | | | PDT | | + +---------+ + + | Pulse | - | - | | + +---------+ + + | Temperature | - | - | | + +---------+ + + | Respiratory Rate | - | - | | + +---------+ + + | Oxygen Saturation | - | - | | + +---------+ + + | Inhaled Oxygen | - | - | | | Concentration | | | | + +---------+ + + | Weight | - | - | | + +---------+ + + | Height | - | - | | + +---------+ + + | Body Mass Index | - | - | | + +---------+ + + Plan of Treatment +--------+---------+ + + + | Date | Type | Specialty | Care Team | Description | +--------+---------+ + + + | 08/05/ | Office | Orthopedic Surgery | Omer Harrington, | | | 2019 | Visit | | [address] | | | | | | [place] [address] | | | | | | [phone] | | | | | | | | +--------+---------+ + + + + + + + + | Health Maintenance | Due Date | Last | Comments | | | | Done | | + + + + + | Hepatitis C | | | | | Screening | 8 | | | + + + + + | Vaccine: | | | | | Dtap/Tdap/Td (1 - | 7 | | | | Tdap) | | | | + + + + + | Colorectal Cancer | | | | | Screening | 8 | | | | (Colonoscopy) | | | | + + + + + | Vaccine: Zoster (2 | | 05/04/20 | | | of 3) | 7 | 07 | | + + + + + | AAA Screening | | | | | | 3 | | | + + + + + | Vaccine: | | | | | Pneumococcal 65+ (1 | 3 | | | | of 1 - PPSV23) | | | | + + + + + | Adult Annual | | | | | Wellness Visit | 0 | | | + + + + + | Vaccine: Influenza | | 09/21/20 | | | (#1) | 0 | 17 | | + + + + + Results Not on filefrom Last 3 Months Insurance + +--------+ +--------+ +---------+--------+ | Payer | Benefi | Subscriber | Effect | Phone | Address | Type | | | t Plan | ID | js | | | | | | / | | Dates | | | | | | Group | | | | | | + +--------+ +--------+ +---------+--------+ | MEDICARE | MEDICA | [id number] | 07/09/20 | [phone] | | Medica | | | RE | | 08-Pre | 5 | | re | | | PART A | | sent | | | | | | AND B | | | | | | + +--------+ +--------+ +---------+--------+ | [facility] | IHS | [id number] | | | | Indemn | | SERVICE | YELLOW | | 020-Pr | | | ity | | | HAWK | | esent | | | | + +--------+ +--------+ +---------+--------+ + +--------+ +--------+ + + | Guarantor Name | Accoun | Relation to | Date | Phone | Billing Address | | | t Type | Patient | of | | | | | | | | | | + +--------+ +--------+ + + | Dequan Reyes Sr. | Person | Self | [birth year] | [address] | | | sharlene/Michael | | 1950 | [phone] | [place] [address] | | | brianne | | | 7 (Home) | | + +--------+ +--------+ + + | Dequan Reyes Sr. | Person | Self | [birth year] | [address] | | | sharlene/Michael | | 1950 | [phone] | [place] [address] | | | brianne | | | 7 (Home) | | + +--------+ +--------+ + + Advance Directives + + + + + | Type | Date Recorded | Patient | Explanation | | | | Pst Supervisor | | + + + + + | Power of | | | | | Filing Or Registry Clerk | | | | + + + + + | Advance | | | | | Directive | | | | + + + + +"
--- OUTSIDE RECORDS SUMMARY | ~2020-07-29 | XMS | Encounter Summary ---
Demographics + + + | Address | [address] | | | [place] [address] | + + + | Home Phone | | + + + | Preferred Language | Unknown | + + + | Marital Status | | + + + | Sabianist Affiliation | Unknown | + + + | Race | White | + + + | Ethnic Group | Unknown | + + + Author + + + | Author | [facility] | | | and [place] | + + + | Organization | [facility] | | | and [place] | + + + | Address | Unknown | + + + | Phone | Unavailable | + + + Care Team Providers + +------+ + | Care Infantry Assaultman Name | Role | Phone | + +------+ + PCP | Unavailable | + +------+ + Encounter Details +--------+ + + + + | Date | Type | Department | Care Team | Description | +--------+ + + + + | 12/29/ | Hospital | [facility] | Oziel Pichardo | | | 2007 | Encounter | MED CTR LABORATORY | MD Guy [address] [place] [address] | | | | | [address] | [place] | | | | | [place] | [address] | | | | | [address] | | | | | | [phone] | | | +--------+ + + + [...] | | 2019 | Visit | | [address] | | | | | | [place] [address] | | | | | | [phone] | | | | | | | | +--------+---------+ + + + documented as of this encounter Visit Diagnoses Not on filedocumented in this encounter"
--- OUTSIDE RECORDS SUMMARY | ~2020-07-29 | XMS | Encounter Summary ---
Demographics + + + | Address | [address] | | | [place] [address] | + + + | Home Phone | | + + + | Preferred Language | Unknown | + + + | Marital Status | Single | + + + | Confucianist Affiliation | Unknown | + + + [...] Team Providers + +------+ + | Care Leasing Specialist Name | Role | Phone | + +------+ + | Matt Arreguin MD | PCP | | + +------+ + Reason for Visit + +--------+ + | Reason | Onset | Comments | | | Date | | + +--------+ + | Eye examination | 06/03/ | | | | 2010 | | + +--------+ + Encounter Details +--------+---------+ + + + | Date | Type | Department | Care Team | Description | +--------+---------+ + + + | 06/03/ | Office | [facility] | | Benign neoplasm of | | 2010 | Visit | [facility] | | choroid | | | | Photography at [facility] | | | | | | [address] | | | | | | [place] for [facility] | | | | | | and Healing, | | | | | | Building | | | | | | Floor [place], [place] | | | | | | [address] | | | | | | [phone] | | | +--------+---------+ + + + [...] this encounter Progress Notes Adan Spencer - 06/03/2011 2:27 PM BODequan Reyes was seen in the [facility] otography/Ultrasound Department today, 06/03/2011, for ultrasound and fundus photography, OD. The B-scan shows the lesion in the macula with perhaps a slight increase in thickness to ab out 2.5 mm. Measurements are difficult because of the ill-defined sclera. However, in a side by side comparison to last exam shows the lesion to be "baird" today. Thge retina remains bullously detached across the lesion. documented in this encounte r Plan of Treatment Not on filedocumented as of this encounter Visit Diagnoses + + | Diagnosis | + + | Benign neoplasm of choroid | + + documented in this encounter
--- OUTSIDE RECORDS SUMMARY | ~2020-07-29 | XMS | Encounter Summary ---
Demographics + + + | Address | [address] | | | [place] [address] | + + + | Home Phone | | + + + | Preferred Language | Unknown | + + + | Marital Status | Single | + + + | Pentecostal Affiliation | Unknown | + + + | Race | Unknown | + + + | Ethnic Group | Other Race | + + + Author + + + | Author | [facility] | + + + | Organization | [facility] | + + + | Address | Unknown | + + + | Phone | Unavailable | + + + Support + + +---------+ + | Name | Relationship | Address | Phone | + + +---------+ + | None None | ECON | Unknown | Unavailable | + + +---------+ + Care Team Providers + +------+ + | Care Thread Puller Name | Role | Phone | + +------+ + | Matt Arreguin MD | PCP | | + +------+ + Reason for Visit + +--------+ + | Reason | Onset | Comments | | | Date | | + +--------+ + | Ultrasound procedure | 06/03/ | | | | 2010 | | + +--------+ + Encounter Details +--------+ + + + + | Date | Type | Department | Care Team | Description | +--------+ + + + + | 06/03/ | Results/Int | [facility] | Nicolas Rose | Benign neoplasm of | | 2010 | erpretation | [facility] | E Jr., MD [address] | choroid | | | | [place] [place] [address] | [place] | | | | | [address] | [place], [place] | | | | | [facility], [facility] | [address] | | | | | floor [place], [place] | [phone] | | | | | [address] | [...] encounter Progress Notes Adan Spencer - 06/03/2011 2:28 PM Jeanine Reyes was seen in the [facility] otography/Ultrasound Department today, 06/03/2011, for ultrasound [...] retina remains bullously detached across the lesion. I have reviewed the images and the [...] | | + +---------+--------+ + + | [facility] B-SCAN | Imaging | Routin | Benign neoplasm of | Ordered: 06/03/2011 | | | | e | choroid | | + +---------+--------+ + + documented as of this encounter Visit Diagnoses + + | Diagnosis | + + | Benign neoplasm of choroid | + + documented in this encounter
--- OUTSIDE RECORDS SUMMARY | ~2020-07-29 | XMS | Encounter Summary ---
Demographics + + + | Address | [address] | | | [place] [address] | + + + | Home Phone | | + + + | Preferred Language | Unknown | + + + | Marital Status | | + + + | Sabianist Affiliation | Unknown | + + + | Race | White | + + + | Ethnic Group | Unknown | + + + Author + + + | Author | [facility] | | | and [place] | + + + | Organization | [facility] | | | and [place] | + + + | Address | Unknown | + + + | Phone | Unavailable | + + + Care Team Providers + +------+ + | Care Deployment Specialist Name | Role | Phone | + +------+ + PCP | Unavailable | + +------+ + Encounter Details +--------+ + + + + | Date | Type | Department | Care Team | Description | +--------+ + + + + | 03/16/ | Hospital | [facility] | Enrike Walsh, | | | 2000 | Encounter | MED CTR XRAY [address] | [address] [facility] | | | | | [place] | [place] | | | | | [place] [address] | [address] | | | | | [phone] | | | +--------+ + + + [...] | | 2019 | Visit | | [address] | | | | | | [facility] [address] | | | | | | [phone] | | | | | | | | +--------+---------+ + + + documented as of this encounter Visit Diagnoses Not on filedocumented in this encounter"
--- OUTSIDE RECORDS SUMMARY | ~2020-07-29 | XMS | Encounter Summary ---
Demographics + + + | Address | [address] | | | [place] [address] | + + + | Home Phone | | + + + | Preferred Language | Unknown | + + + | Marital Status | | + + + | Methodist Affiliation | Unknown | + + + | Race | White | + + + | Ethnic Group | Unknown | + + + Author + + + | Author | [facility] | | | and [place] | + + + | Organization | [facility] | | | and [place] | + + + | Address | Unknown | + + + | Phone | Unavailable | + + + Care Team Providers + +------+ + | Care Multiple Sclerosis Nurse Name | Role | Phone | + +------+ + PCP | Unavailable | + +------+ + Encounter Details +--------+ + + + + | Date | Type | Department | Care Team | Description | +--------+ + + + + | 07/20/ | Abstract | [facility] | [facility] | | | 2011 | | Conversion Location | SR | | | | | [address] | | | | | | [place], [place] | | | | | | [address] | | | | | | [phone] | | | +--------+ + + + [...] + + documented as of this encounter Last Filed Vital Signs + +---------+ + [...] - | | + +---------+ + + documented in this encounter Plan of Treatment +--------+---------+ + + + | Date | Type | Specialty | Care Team | Description | +--------+---------+ + + + | 08/05/ | Office | Orthopedic Surgery | Omer Harrington, | | | 2019 | Visit | | [address] | | | | | | [place] [address] | | | | | | [phone] | | | | | | | | +--------+---------+ + + + documented as of this encounter Visit Diagnoses Not on filedocumented in this encounter"
--- OUTSIDE RECORDS SUMMARY | ~2020-07-29 | XMS | Encounter Summary ---
Demographics + + + | Address | [address] | | | [place] [address] | + + + | Home Phone | | + + + | Preferred Language | Unknown | + + + | Marital Status | Single | + + + | Episcopal Affiliation | Unknown | + + + | Race | Unknown | + + + | Ethnic Group | Other Race | + + + Author + + + | Author | [facility] | + + + | Organization | [facility] | + + + | Address | Unknown | + + + | Phone | Unavailable | + + + Support + + +---------+ + | Name | Relationship | Address | Phone | + + +---------+ + | None None | ECON | Unknown | Unavailable | + + +---------+ + Care Team Providers + +------+ + | Care Kiln Furniture Saw Tender Name | Role | Phone | + +------+ + | Matt Arreguin MD | PCP | | + +------+ + Reason for Visit Office Visit - E/M Services (Routine) +--------+--------+ + + + + | Status | Reason | Specialty | Diagnoses / | Referred By | Referred To | | | | | Procedures | Contact | Contact | +--------+--------+ + + + + | Closed | | Ophthalmology | | Rodríguez, | [place] | | | | | | Matt | Omer Lopes MD | | | | | | MD Satya | [address] | | | | | [address] | [address] | | | | [address] | [address] | | | | | | MEDICINE | [place], [place] | | | | | | [address] | [address] | | | | | | [place] | Phone: | | | | | | [address] | [phone] | | | | | | [place], | Fax: | | | | | | [place] [address] | [phone] | | | | | | Phone: | | | | | | | [phone] | | | | | | | Fax: | | | | | | | [phone] | | +--------+--------+ + + + + Encounter Details +--------+---------+ + + + | Date | Type | Department | Care Team | Description | +--------+---------+ + + + | 10/07/ | Office | [facility] | Omer De Luna, | Neoplasm of | | 2010 | Visit | [facility] at | MD [address] | uncertain behavior | | | | [facility] [address] | [place] | of other specified | | | | [place] [facility] | [facility] [place] | sites (Primary Dx) | | | | and Healing, | [address] | | | | | | [phone] | | | | | [place], [place] | | | | | | [address] | | | | | | [phone] | | | +--------+---------+ + + + [...] Patient Instructions Patient Instructions Isabel Beyer - 10/07/2011 12:05 PM PST Mr. Dequan Reyes was seen for the followin. 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 Return in about 6 months (ar ound 04/06/2012). documented in this encounter Progress Notes Omer De Luna MD - 10/07/2011 11:35 AM PSTFormatting of this note might be different fro m the original. History of Present Illness: Dequan Reyes is a 61 y.o. male who returns for follow up of ch oroidal hemangioma; s/p photodynamic therapy OD 12/02/10, 09/09/10 & 06/19/10. Vision is sta ble since last visit. He reports that he took Vicodin this morning for headache. Medications: no eye meds Review of Systems: Right Left Loss of Vision no no Eye Pain no no Mental Status: Oriented times three Examination: EXAMINATION: [facility] RE: HM VAcc LE: 20/20-2 IOP: RE 8; LE 11 by Tonopen at 11:41 AM RE LE Pupils 1mm, nonreactive 1mm nonreactive Motility RXT, full ROM full ROM CVF full full Dilating drops placed: tropicamide 1% and neosynephrine 2.5% at 11:44 AM. External: OD normal, OS normal Slit [...] normal Disc: CDR .2 Macula: relatively flat non pigmented lesion; no subretinal fluid in the fovea Vessels: normal Periphery: inferior subretinal fluid continues to reabsorb; there is a tight fold developin g temporally Vitreous: normal Disc: CDR .2 Macula: normal Vessels: normal Periphery: normal Assessment and Plan: Choroidal hemangioma s/p PDT: Doing well with continued resolution of subretinal fluid; RTC 6 months to continue to monitor. I have reviewed and edited history, equipment engineering technician, resident and/or fellow portion of documenta tion, and performed all elements of the above examination documentation. 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
--- OUTSIDE RECORDS SUMMARY | ~2020-07-29 | XMS | Encounter Summary ---
Demographics + + + | Address | [address] | | | [place] [address] | + + + | Home Phone | | + + + | Preferred Language | Unknown | + + + | Marital Status | | + + + | Gnosticism Affiliation | Unknown | + + + | Race | White | + + + | Ethnic Group | Unknown | + + + Author + + + | Author | [facility] | | | and [place] | + + + | Organization | [facility] | | | and [place] | + + + | Address | Unknown | + + + | Phone | Unavailable | + + + Care Team Providers + +------+ + | Care Vegetable Picker Name | Role | Phone | + +------+ + PCP | Unavailable | + +------+ + Encounter Details +--------+ + + + + | Date | Type | Department | Care Team | Description | +--------+ + + + + | 02/03/ | Hospital | [facility] | Nicolas Powres, | | | 2005 - | Encounter | MED CTR GENERIC IP | MD [address] | | | | | CONV DEPT [address] | [place] | | | 02/15/ | | [place], | [address] | | | 2005 | | [place] [address] | | | | | | [phone] | | | +--------+ + + + [...] | | 2019 | Visit | | [address] | | | | | | [place] [address] | | | | | | [phone] | | | | | | | | +--------+---------+ + + + documented as of this encounter Visit Diagnoses Not on filedocumented in this encounter"
--- OUTSIDE RECORDS SUMMARY | ~2020-07-29 | XMS | Encounter Summary ---
Demographics + + + | Address | [address] | | | [place] [address] | + + + | Home Phone | | + + + | Preferred Language | Unknown | + + + | Marital Status | Single | + + + | Roman Catholic Affiliation | Unknown | + + + | Race | Unknown | + + + | Ethnic Group | Other Race | + + + Author + + + | Author | [facility] | + + + | Organization | [facility] | + + + | Address | Unknown | + + + | Phone | Unavailable | + + + Support + + +---------+ + | Name | Relationship | Address | Phone | + + +---------+ + | None None | ECON | Unknown | Unavailable | + + +---------+ + Care Team Providers + +------+ + | Care Roughing Mill Operator Name | Role | Phone | + +------+ + | Matt Arreguin MD | PCP | | + +------+ + Reason for Visit + + + | Reason | Comments | + + + | Follow-up visit | PDT OD | + + + Encounter Details +--------+ + + + + | Date | Type | Department | Care Team | Description | +--------+ + + + + | 09/09/ | Procedure | [facility] | Omer De Luna, | Follow-up visit (PDT | | 2009 | | [facility] at | [address] | OD) | | | | Radha [place] | [place] | | | | | [address] | [place], [place] | | | | | Eye [facility] | [address] | | | | | floor [place], [place] | [phone] | | | | | [address] | [...] documented as of this encounter Progress Notes Chin Birch RN - 09/09/2010 12:04 PM PDT Photodynamic Therapy Procedure Report [id number] Indication: Choroidal Hemangioma, 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 Visual Acuity : 20/HM Right eye IOP 16 mmHg Communication Assistant: Khadra LEE held Allergies Allergen Reactions Penicillins Any Liver Disease? no Height:5'7.5 Weight:225 Pulse: 64 BP: 150/80 Anesthesia: Topical proparacaine Lens: Mainster PDT Infusion: Visudyne: 132 units 6.6 cc ml D5W: 23.4 Lot# [id number] Exp. 09/20 mlIV site: 24G IV started in Left antecubital Visudyne infused over 10 minutesInfusion Complications: none Infusionist: Chin Birch RN 15 mleftinutes after the start of infusion, diode laser light at 689nm delivered 50J/cm2 at an intensity of 600mW/hk9xuux 83 seconds using a 7.5 micron spot. Laser Complications: none Attending: Omer De Luna MD Discharge Instructions: Call or return for worsening vision. For the next 5 days remain ind oors if possible, Strictly avoid exposure to direct sun and halogen light. Wear hat, gloves, long sleeves, sunglasses outdoors. Follow-up in 6 weeks . Omer Daniel MD - 09/09/2010 10:58 AM PDTFormatting of this note might be different fro m the original. Retina Division Progress Note Return Visit 09/09/2010 CC: Here for laser HPI: Dequan Reyes is a 60 y.o. male here for photodynamic therapy to choroidal hemangioma, OD. Eyes comfortable Pain:No pain (0 of 0-10) POH: See Specialty Comments PMH: No recent hospitalizations, ER visits, or surgeries Examination: 09/09/2010 Va sc Va cc PH IOP 10:59 AM Right Eye HM 16 Left Eye 20/20- A&O x 4 Right eye dilated only with Mydriacyl and Neosynephrine 10:59 AM Initial hx, allergies, meds, Va, IOP and above exam elements reviewed / performed by INGRID SINGH SLE OD OS Lids Nl lids, lashes, orbit Nl lids, lashes, orbit Conj White and quiet White and quiet Cornea Nl. tear film, epithelium, stroma, and endothelium Nl. 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 PLAN: PARQ held for PDT OD; patient tolerated the procedure well. RTC in 6 weeks. I have reviewed and edited history, mechanical maintenance technician, resident and/or fellow portion of documenta tion, and performed all elements of the above examination documentation. Omer De Luna MD Professor and Lluvia Chair, Department of Ophthalmology Director, [facility] [phone] documented in this en counter Miscellaneous Notes Scan - Other, Faculty - 09/09/2010 12:39 PM PDT documented in this encou nter Plan of Treatment Not on filedocumented as of this encounter Procedures + +--------+ + + + | Procedure Name | Priori | Date/Time | Associated Diagnosis | Comments | | | ty | | | | + +--------+ + + + | VT DEST,CHOROID | Routin | 10/04/2010 | Benign neoplasm of | | | DONTAPHOTODYNAMIC | e | 10:33 AM | choroid | | | THERAPY | | PST | | | + +--------+ + + + | VT DEST,CHOROID | Routin | 10/04/2010 | Benign neoplasm of | | | DONTAPHOTODYNAMIC | e | 10:33 AM | choroid | | | THERAPY | | PST | | | + +--------+ + + + | ORDERS OTHER | | 09/09/2010 | | Results for this | | | | 12:39 PM | | procedure are in the | | | | PDT | | results section. | + +--------+ + + + documented in this encounter Visit Diagnoses + + | Diagnosis | + + | Benign neoplasm of choroid - Primary | + + documented in this encounter"
--- OUTSIDE RECORDS SUMMARY | ~2020-07-29 | XMS | Encounter Summary ---
Demographics + + + | Address | [address] | | | [place] [address] | + + + | Home Phone | | + + + | Preferred Language | Unknown | + + + | Marital Status | | + + + | Spiritism Affiliation | Unknown | + + + | Race | White | + + + | Ethnic Group | Unknown | + + + Author + + + | Author | [facility] | | | and [place] | + + + | Organization | [facility] | | | and [place] | + + + | Address | Unknown | + + + | Phone | Unavailable | + + + Care Team Providers + +------+ + | Care Manufacturing Engineering Manager Name | Role | Phone | + +------+ + PCP | Unavailable | + +------+ + Encounter Details +--------+ + + + + | Date | Type | Department | Care Team | Description | +--------+ + + + + | 08/10/ | Hospital | [facility] | | | | 2001 - | Encounter | MED CTR OP REHAB | | | | | | [address] | | | | 09/11/ | | [place] [address] | | | | 2001 | | [phone] | | | +--------+ + + + [...] [address] | | | | | | [place] [address] | | | | | | [phone] | | | | | | | | +--------+---------+ + + + documented as of this encounter Visit Diagnoses Not on filedocumented in this encounter"
--- OUTSIDE RECORDS SUMMARY | ~2020-07-29 | XMS | Encounter Summary ---
Demographics + + + | Address | [address] | | | [place] [address] | + + + | Home Phone [...] Author + + + | Author | [facility] | + + + | Organization | [facility] | + + + | Address | Unknown | + + + | Phone | Unavailable | + + + Support + + +---------+ + | Name | Relationship | Address | Phone | + + +---------+ + | None None | ECON | Unknown | Unavailable | + + +---------+ + Care Team Providers + +------+ + | Care Locomotive Repairer Diesel Name | Role | Phone | + +------+ + | Matt Arreguin MD | PCP | | + +------+ + Reason for Visit + +--------+ + | Reason | Onset | Comments | | | Date | | + +--------+ + | Follow-up visit | | | + +--------+ + | Follow-up visit | 12/02/ | | | | 2010 | | + +--------+ + Office Visit - E/M Services (Routine) +--------+--------+ + + + + | Status | Reason | Specialty | Diagnoses / | Referred By | Referred To | | | | | Procedures | Contact | Contact | +--------+--------+ + + + + | Closed | | Ophthalmology | | Sitz, | [place], | | | | | | Matt | Omer Lopes MD | | | | | | MD [address] | [address] | | | | | | [place] | [address] | | | | | | [address] | [address] | | | | | | MEDICINE | [place], [place] | | | | | | [address] | [address] | | | | | | [place] | Phone: | | | | | | [address] | [phone] | | | | | | [place], | Fax: | | | | | | [place] [address] | [phone] | | | | | | Phone: | | | | | | | [phone] | | | | | | | Fax: | | | | | | | [phone] | | +--------+--------+ + + + + Encounter Details +--------+ + + + + | Date | Type | Department | Care Team | Description | +--------+ + + + + | 12/02/ | Procedure | [facility] | Omer De Luna, | Follow-up visit; | | 2010 | | [facility] at | [address] | Follow-up visit | | | | [address] | [place] | | | | | [address] | [place], [place] | | | | | Eye [facility] | [address] | | | | | floor [place], [place] | [phone] | | | | | [address] | [...] Progress Notes Omer De Luna MD - 12/02/2010 1:55 PM PSTFormatting of this note might be different fro m the original. Photodynamic Therapy Procedure Report [id number] Indication: choroidal hemangioma 224.6 Right eye identified as the involved eye. Visual Acuity : 20/CF 2-3 Right eye IOP 16 mmHg Telephone Interviewer: Varsha ames Allergies Allergen Reactions Penicillins Any Liver Disease? no Height:67" Weight: 227lbs. Anesthesia: Topical proparacaine Lens: Mainster PDT Infusion: Visudyne: 6.3 ml D5W: 23.7 mlIV site: 24G IV started in left antecubital Visud yne infused over 10 minutesInfusion Complications: none Infusionist: Chin Birch RN 7.5mm spot size 15 minutes after the start of infusion, diode laser light at 689nm delivered 50J/cm2 at an intensity of 600mW/uf6dnqi 83 seconds using a 7.5 micron spot. Laser Complications: none Attending: Omer De Luna MD Discharge Instructions: Call or return for worsening vision. For the next 5 days remain ind oors if possible, Strictly avoid exposure to direct sun and halogen light. Wear hat, gloves, long sleeves, sunglasses outdoors. Follow-up in 3 months. Varsha Gaxiola - 12/02/2010 1:00 PM PSTFormatting of this note might be different from the o riginal. History of Present Illness: Dequan Reyes is a 60 y.o. male returns for follow up of choro idal hemangioma and possible repeat PDT. S/P photodynamic therapy OD 09/09/10 & 06/19/10. Patient reports the vision in his OD seems worse, states he can barely see light now. Medications: No eye medications. Systemic medications reviewed in EPIC. Review of Systems: Right Left Loss of Vision Y N Eye Pain N N Mental Status: Oriented times three Examination: VAsc RE: VAcc RE: CF 2-3' inferior VAph sc RE: VAph cc RE: VAsc LE: VAcc LE: 20/20-1 VAph sc LE: VAph cc LE: IOP: RE 16; LE 20 by Tonopen at 1:07 PM RE LE Pupils 2 mm equal round and reactive to light; no APD 2 mm equal round and reactive to ligh t; no APD Motility appears XT, full ROM ortho, full ROM CVF movement in inferior/temporal field only full Dilating drops placed: tropicamide 1% and neosynephrine 2.5% OD at 1:08 PM Varsha [place] Cot, performed, reviewed or [...] LE Vitreous: normal Disc: CDR .2 Macula: elevated reddish lesion in the choroid; this lesion appears smaller than on prior e xaminations Vessels: normal Periphery: inferior subretinal fluid that is decreased in extent compared to prior examinat ions Vitreous: normal Disc: CDR .2 Macula: normal Vessels: normal Periphery: normal Diagnostic Studies: Echography: There is a slight reduction in the thickness of the choroidal lesion, and there is a decrease in the amount of subretinal fluid Assessment and Plan: Choroidal hemangioma: I have recommended repeat PDT today. Mr. Reyes tolerated this well. I have asked him to return in 3 months to monitor the effects of the PDT. Mr. Reyes has be en treated 3 times now, so I think it will be best to just observe the subretinal fluid as a n indication was to whether any additional treatment is needed. RTC 3 months. I have reviewed and edited history, generator technician, resident and/or fellow portion of documenta tion, and performed all elements of the above examination documentation. Omer De Luna MD Professor and Lluvia Chair, Department of Ophthalmology Director, [facility] [phone] documented in this en counter Miscellaneous Notes Scan - Other, Faculty - 11/26/2010 12:00 AM PST can - Other, Faculty - 10/29/2010 12:00 AM PST can - Other, Faculty - 10/29/2010 12:00 AM PST documented in this encou nter Plan of Treatment + + +--------+ + + | Name | Type | Priori | Associated Diagnoses | Order Schedule | | | | ty | | | + + +--------+ + + | ULTRASOUND, B SCAN | Procedures | Routin | Benign neoplasm of | Expected: | | | | e | choroid | 12/02/2010, Expires: | | | | | | 01/31/2011 | + + +--------+ + + documented as of this encounter Procedures + +--------+ + + + | Procedure Name | Priori | Date/Time | Associated Diagnosis | Comments | | | ty | | | | + +--------+ + + + | KY DEST,CHOROID | Routin | 12/02/2010 | Benign neoplasm of | | | DONTA,PHOTODYNAMIC | e | 3:56 PM | choroid | | | THERAPY | | PST | | | + +--------+ + + + | KY DEST,CHOROID | Routin | 12/02/2010 | Benign neoplasm of | | | DONTAPHOTODYNAMIC | e | 3:56 PM | choroid | | | THERAPY | | PST | | | + +--------+ + + + documented in this encounter Visit Diagnoses + + | Diagnosis | + + | Benign neoplasm of choroid - Primary | + + documented in this encounter
--- OUTSIDE RECORDS SUMMARY | ~2020-07-29 | XMS | Encounter Summary ---
Demographics + + + | Address | [address] | | | [place] [address] | + + + | Home Phone | | + + + | Preferred Language | Unknown | + + + | Marital Status | | + + + | Amish Affiliation | Unknown | + + + | Race | White | + + + | Ethnic Group | Unknown | + + + Author + + + | Author | [facility] | | | and [place] | + + + | Organization | [facility] | | | and [place] | + + + | Address | Unknown | + + + | Phone | Unavailable | + + + Care Team Providers + +------+ + | Care Mat Weaver Name | Role | Phone | + +------+ + PCP | Unavailable | + +------+ + Encounter Details +--------+ + + + + | Date | Type | Department | Care Team | Description | +--------+ + + + + | 07/06/ | Hospital | [facility] | | | | 2001 | Encounter | MED CTR XRAY [address] | | | | | | [place] [address] | | | | | | [place] [address] | | | | | | [phone] | | | +--------+ + + + [...] | 2019 | Visit | | MD [address] | | | | | | [place] [address] | | | | | | [phone] | | | | | | | | +--------+---------+ + + + documented as of this encounter Visit Diagnoses Not on filedocumented in this encounter"
--- OUTSIDE RECORDS SUMMARY | ~2020-07-29 | XMS | Encounter Summary ---
Demographics + + + | Address | [address] | | | [place] [address] | + + + | Home Phone | | + + + | Preferred Language | Unknown | + + + | Marital Status | Single | + + + | Zoroastrianism Affiliation | Unknown | + + + | Race | Unknown | + + + | Ethnic Group | Other Race | + + + Author + + + | Author | [facility] | + + + | Organization | [facility] | + + + | Address | Unknown | + + + | Phone | Unavailable | + + + Support + + +---------+ + | Name | Relationship | Address | Phone | + + +---------+ + | None None | ECON | Unknown | Unavailable | + + +---------+ + Care Team Providers + +------+ + | Care Consulting Practice Manager Name | Role | Phone | + +------+ + | Matt Arreguin MD | PCP | | + +------+ + Reason for Visit + + + | Reason | Comments | + + + | Follow-up visit | | + + + Office Visit - E/M Services (Routine) +--------+--------+ + + + + | Status | Reason | Specialty | Diagnoses / | Referred By | Referred To | | | | | Procedures | Contact | Contact | +--------+--------+ + + + + | Closed | | Ophthalmology | Diagnoses | Rodríguez, | [place]o | | | | | Will | Matt | Omer Lopes MD | | | | | neoplasm of | MD Satya | [address] | | | | | choroid | [place] | [address] | | | | | Procedures | [address]NAL | [address] | | | | | [place] | MEDICINE | [place], [place] | | | | | DEST,CHOROID | [address] | [address] | | | | | | [place] | Phone: | | | | | [address] | [address] | [phone] | | | | | [place] | [place], | Fax: | | | | | THERAPY | [place] [address] | [phone] | | | | | | Phone: | | | | | | | [phone] | | | | | | | Fax: | | | | | | | [phone] | | +--------+--------+ + + + + Encounter Details +--------+ + + + + | Date | Type | Department | Care Team | Description | +--------+ + + + + | 06/19/ | Procedure | [facility] | Omer De Luna, | Follow-up visit | | 2009 | | [facility] at | [address] | | | | | Radha [address] | [address] | | | | | [address] | [place], [place] | | | | | [facility] [place], [facility] | [address] | | | | | floor [place], [place] | [phone] | | | | | [address] | | | +--------+ + + + [...] documented as of this encounter Progress Notes Paradise Estrada - 06/30/2010 8:18 AM PDT Addended by: PARADISE ESTRADA on: 0 Modules accepted: Orders Chin Padron RN - 12:04 PM PDT Photodynamic Therapy Procedure Report [id number] Indication: 224.6 right eye identified as the involved eye. Visual Acuity : 20/HM Right Eye IOP 14 mmHg Dental Receptionist: ISAIAH Younger Allergies Allergen Reactions Penicillins Any Liver Disease? no There is no height or weight on file to calculate BSA. Height:67" Weight: 229 Puls e: 78 BP: 140/90 Anesthesia: Topical proparacaine Lens: Mainster PDT Infusion: Visudyne: 6.1 wb=197 units used; 28 units wasted. Lot# [id number] Exp. 09/19 D5W: 24 mlIV site: 24G IV started in Right antecubital Visudyne infused over 10 minutesInfusion Complications: none Infusionist: Chin Birch RN 15 minutes after the start of infusion, diode laser light at 689nm delivered 50J/cm2 at an intensity of 600mW/yd7ghqk 83 seconds using a 7.5 micron spot. Laser Complications: none Attending: Omer De Luna MD Discharge Instructions: Call or return for worsening vision. For the next 5 days remain ind oors if possible, Strictly avoid exposure to direct sun and halogen light. Wear hat, gloves, long sleeves, sunglasses outdoors. Follow-up in 6 weeks Omer De Luna MD Professor and Raschel Knitting Machine Operator, Department of Ophthalmology [facility] [place] [facility] [phone] arsha Tracey - 2009 10:06 AM PDT History of Present Illness: Dequan Reyes is a 60 y.o. male returns today for re-evaluation and PDT to hemangioma OD. Patient reports his vision is the same as last visit. Mr. Slim davis has previously had laser treatment to the choroidal lesion with a clinical diagnosis of he mangioma. Patient reports his vision in his OD has been poor for years, OS is good. PCP - Dr. Arreguin recently completed medical workup with labs, EKG (received reports) CT [address], abdomen and pelvis (not received). Medications: No eye medications. Systemic medications reviewed in EPIC. Review of Systems: Right Left Loss of Vision Y N Eye Pain N N Mental Status: Oriented times three Examination: VAsc RE: VAcc RE: HM C DIRECTION VAph sc RE: VAph cc RE: VAsc LE: VAcc LE: 20/20 VAph sc LE: VAph cc LE: IOP: RE 14; LE NT by Tonopen at 10:11 AM RE LE Pupils 2 mm equal round and reactive to light; no APD 2 mm equal round and reactive to ligh t; no APD Motility ortho, full ROM ortho, full ROM CVF limited all sheridan full Dilating drops placed: tropicamide 1% and neosynephrine 2.5% OD at 10:12 AM Varsha Salinas Cot, performed, reviewed or revised the above history, medications, allergie s, as well as performed elements noted in the Base Ophthalmology Exam, such as visual acuity , pupils, EOMs, CVF and IOP. External: OD normal, OS normal Slit lamp exam: RE Lids/Lacrimal/Tear: normal Conjunctiva: normal Cornea: epithelium intact, normal stromal thickness, endothelium normal AC: deep and clear Iris: normal Lens: 2+ NS Fundus Exam: RE Vitreous: normal Disc: CDR .3 Macula: elevated, orange lesion centered on the fovea Vessels: normal Periphery: inferior subretinal fluid Assessment and Plan: Choroidal hemangioma, OD: PDT was performed as per operative note. RTC 6 weeks to assess r esponse to the laser. Stay out of sunlight for 3-5 days. I have reviewed and edited history, automotive technician instructor and/or fellow portion of documentation, and performed all elements of the above examination documentation. Omer De Luna MD Professor and Raschel Knitting Machine Operator, Department of Ophthalmology [facility] [place] [facility] [phone] documented in this en counter Miscellaneous Notes Scan - Other, Faculty - 10/19/2010 11:22 AM PST can - Other, Faculty - 10/05/2010 2:31 PM PST documented in this encou nter Plan of Treatment Not on filedocumented as of this encounter Procedures + +--------+ + + + | Procedure Name | Priori | Date/Time | Associated Diagnosis | Comments | | | ty | | | | + +--------+ + + + | [place] DEST,CHOROID | Routin | 06/29/2010 | Benign neoplasm of | | | LESN,PHOTODYNAMIC | e | 1:24 PM | choroid | | | THERAPY | | PDT | | | + +--------+ + + + | [place] DEST,BRAYDEN | Routin | 06/29/2010 | Benign neoplasm of | | | MAREN LONGO | e | 1:24 PM | choroid | | | THERAPY | | PDT | | | + +--------+ + + + documented in this encounter Visit Diagnoses + + | Diagnosis | + + | Benign neoplasm of choroid - Primary | + + documented in this encounter
[2020-07-29] MEDS ORDERED: KEFLEX500 MG PO (16:09)
== END 2020-07-29 16:42 | disposition home or self-care (01) ==
LOC: ED 14:19
DX: L97.929 Non-pressure chronic ulcer of unspecified part of left lower leg with unspecified severity (principal); L03.116 Cellulitis of left lower limb; Z86.73 Personal history of transient ischemic attack (TIA), and cerebral infarction without residual deficits; I10 Essential (primary) hypertension; E78.5 Hyperlipidemia, unspecified; Z87.891 Personal history of nicotine dependence; Z88.0 Allergy status to penicillin
CPT/HCPCS: 73590; 99283-25

== ENCOUNTER 2020-09-29 19:31 | Emergency (ER) | payer MEDICARE, OTHER ==
[~2020-09-29] VITALS: Ht 172.7 cm; Wt 93.0 kg
[~2020-09-29 19:31] MED LIST changes: +KEFLEX500 MG PO
== END 2020-09-30 01:52 | disposition home or self-care (01) ==
LOC: ED 19:31
DX: S01.01XA Laceration without foreign body of scalp, initial encounter (principal); W22.8XXA Striking against or struck by other objects, initial encounter; Z86.73 Personal history of transient ischemic attack (TIA), and cerebral infarction without residual deficits; I10 Essential (primary) hypertension; E78.5 Hyperlipidemia, unspecified; Z87.891 Personal history of nicotine dependence; Z88.0 Allergy status to penicillin
CPT/HCPCS: 12002; 70450; 99283-25

== ENCOUNTER 2020-11-25 17:14 | Emergency (ER) | payer MEDICARE, OTHER ==
[~2020-11-25] VITALS: Ht 172.7 cm; Wt 93.0 kg
--- OUTSIDE RECORDS SUMMARY | 2020-11-25 18:02 | XMS ---
PreManage Notification: ELIESER MOSES Security Security Project Manager Events No recent Security Events currently on file CRITERIA MET - [facility] - 2 Visits in 30 Days CARE PROVIDERS There are no care providers on record at this time. [place] has no Care Guidelines for this patient. Chris VISIT COUNT (12 MO.) [address] TOTAL 4 NOTE: Visits indicate total known visits. ED/C VISIT TRACKING (12 MO.) 11/25/2020 18:05 [facility] [place] TYPE: Emergency DIAGNOSES: - STEMI, S/P V-FIB ARREST 11/25/2020 17:15 [facility] [place] TYPE: Emergency COMPLAINT: - CHEST PAIN 09/29/2020 19:31 [facility] [place] TYPE: Emergency COMPLAINT: - FELL AND HIT HEAD ON WALL DIAGNOSES: - Essential (primary) hypertension - Allergy status to penicillin - Striking against or struck by other objects, initial encounter - Personal history of nicotine dependence - Personal history of transient ischemic attack (TIA), and cerebral infarction without residual deficits - Laceration without foreign body of scalp, initial encounter - Hyperlipidemia, unspecified 07/29/2020 14:20 [facility] [place] TYPE: Emergency COMPLAINT: - WOUND CHECK DIAGNOSES: - Cellulitis of left lower limb - Hyperlipidemia, unspecified - Personal history of nicotine dependence - Essential (primary) hypertension - Allergy status to penicillin - Personal history of transient ischemic attack (TIA), and cerebral infarction without residual deficits - Non-pressure chronic ulcer of unspecified part of left lower leg with unspecified severity - Non-pressure chronic ulcer of unspecified part of left lower leg with unspecified severity - Cellulitis of left lower limb INPATIENT VISIT TRACKING (12 MO.) No inpatient visits to display in this time frame [email or web address]
--- NOTE | 2020-11-26 07:26 | EKG ---
[facility] [address] [place] [address] Signed Wide QRS rhythm with occasional premature ventricular complexes Rightward axis Nonspecific intraventricular block Inferior infarct , possibly acute Lateral injury pattern ACUTE NH / STEMI Consider right ventricular involvement in acute inferior infarct Abnormal ECG When compared with ECG of 08-NOV-2017 17:45, Wide QRS rhythm has replaced Sinus rhythm Vent. rate has decreased BY 27 BPM Confirmed by JOSETTE HICKEY MD ([id number]) on 11/26/2020 7:26:04 AM Electronically Signed By: JOSETTE HICKEY MD 11/26/20 0726 PATIENT NAME: ELIESER MOSES Electrocardiogram DATE OF : 46 PHYSICIAN: JOSETTE HICKEY MD REPORT #: [id number] REPORT IS CONFIDENTIAL AND NOT TO BE RELEASED WITHOUT AUTHORIZATION
== END 2020-11-25 17:57 | disposition short-term general hospital (02) ==
LOC: ED 17:14
DX: I21.3 ST elevation (STEMI) myocardial infarction of unspecified site (principal); I49.01 Ventricular fibrillation; Z20.822 Contact with and (suspected) exposure to COVID-19; Z86.73 Personal history of transient ischemic attack (TIA), and cerebral infarction without residual deficits; I10 Essential (primary) hypertension; Z87.891 Personal history of nicotine dependence; Z88.0 Allergy status to penicillin
CPT/HCPCS: 71045; 80053; 83735; 84484; 85025; 85610; 93005; 93010; 96374; 96375; 99285-25; C9803; J0461; J1265; J2405; J7030; U0003